=== PATIENT | female | born 1940 | race African-American/Black ===

== ENCOUNTER 2016-12-14 15:26 | Inpatient (IN) | payer MEDICARE, MEDICAID ==
[~2016-12-14] VITALS: Ht 152.4 cm; Wt 43.1 kg
[~2016-12-14 15:26] MED LIST: COMPLERA PO; METO50TA5 PO; TRAZ-132 PO
[2016-12-14] MEDS ORDERED: IPRATROPIUM BROMIDE (0.02%) 0.5MG/2.5ML NEB HHN STA (16:02)
[2016-12-14] MEDS ORDERED: ALBUTEROL (0.083%) 2.5MG/3ML NEB HHN STA (16:02)
[2016-12-14] MEDS ORDERED: ASPIRIN 81MG TABLET PO STA (16:02)
[2016-12-14] MEDS ORDERED: METHYLPREDNISOLONE SOD SUCC 125 MG/2 ML VIAL IV STA (16:02)
[2016-12-14] MEDS ORDERED: NITROGLYCERIN 0.4MG TABLET SL SL PRN ×3 (16:15→18:30)
[2016-12-14] MEDS ORDERED: LEVOFLOXACIN 750MG PREMIX 150 ML IV ONE (16:15)
[2016-12-14] MEDS ORDERED: SODIUM CHLORIDE 0.9% 1000ML BAG (SEPSIS BOLUS) IV ONE (16:15)
[2016-12-14 16:26] LABS: BASOPHILS % 0.3 % (0.0-2.0); HEMATOCRIT. 36.5 % (36.0-48.0); HEMOGLOBIN. 11.9 g/dL (12.0-16.0); LYMPHOCYTES % 24.6 % (20.0-50.0); MEAN CORPUSCULAR HEMOGLOBIN 29.2 pg (28.0-32.0); MEAN CORPUSCULAR HGB CONC 32.7 g/dL (31.0-37.0); MEAN CORPUSCULAR VOLUME 89.4 fL (81.0-99.0); MEAN PLATELET VOLUME 8.5 fl (7.4-10.4); MONOCYTES % 8.7 % (2.0-8.0); NEUTROPHILS % 65.4 % (40.0-76.0); PLATELET 299 x1000/uL (130-400); RED BLOOD CELL COUNT 4.08 mill/uL (4.2-5.4); RED CELL DISTRIBUTION WIDTH 15.7 % (11.6-14.6); WHITE BLOOD COUNT 10.1 x1000/uL (4.5-11.0)
[2016-12-14 16:33] LABS: PARTIAL THROMBOPLASTIN TIME 23.9 sec (24.0-34.0)
[2016-12-14 16:41] LABS: ANION GAP 7; CALCIUM 8.4 mg/dL (8.5-10.1); CARBON DIOXIDE 33 mEq/L (21-32); CHLORIDE 105 mEq/L (98-107); INDEX HEMOLYSI 1 (1-3); INDEX ICTERIC 1 (1-4); INDEX LIPEMIC 1 (1-3); NT PRO B-TYPE NATRIURETIC PEP 732 pg/mL (5-125); TROPONIN I < 0.02 ng/mL (0.00-0.04); UREA NITROGEN BLOOD 14 mg/dL (7-21); eGFR > 60 mL/min (>60)
[2016-12-14 17:42] LABS: CLARITY URINE CLEAR (CLEAR); COLOR URINE YELLOW (YELLOW); GLUCOSE URINE NEGATIVE (NEGATIVE); KETONES URINE NEGATIVE (NEGATIVE); LEUKOCYTE ESTERASE URINE TRACE (NEGATIVE); NITRITE URINE NEGATIVE (NEGATIVE); OCCULT BLOOD URINE NEGATIVE (NEGATIVE); PROTEIN URINE NEGATIVE (NEGATIVE); SPECIFIC GRAVITY URINE 1.016 (1.005-1.030); UROBILINOGEN URINE 0.2 E.U./dL (0.2-1.0)
[2016-12-14 17:59] LABS: BACTERIA URINE TRACE; RBC URINE NONE SEEN /hpf (0-2); SQUAMOUS EPITHELIAL CELL URINE RARE /lpf (RARE/1+); WBC URINE 0-2 /hpf (0-2)
[2016-12-14 18:10] LABS: *AMPHETAMINES SCREEN URINE NEGATIVE (NEGATIVE); *BARBITURATES SCREEN URINE NEGATIVE (NEGATIVE); *BENZODIAZEPINES SCREEN URINE NEGATIVE (NEGATIVE); *COCAINE SCREEN URINE NEGATIVE (NEGATIVE); CANNABINOID URINE SCREEN NEGATIVE (NEGATIVE); ECSTASY MDMA SCREEN URINE NEGATIVE (NEGATIVE); METHADONE URINE SCREEN NEGATIVE (NEGATIVE); OPIATES URINE SCREEN NEGATIVE (NEGATIVE); PHENCYCLIDINE URINE SCREEN NEGATIVE (NEGATIVE)
[2016-12-14] MEDS ORDERED: ONDANSETRON HCL 4MG/2ML VIAL IV PRN (18:30)
[2016-12-14] MEDS ORDERED: TRAMADOL 50MG TABLET PO PRN (18:30)
[2016-12-14] MEDS ORDERED: GUAIFENESIN 200MG/10ML SUGAR FREE UDC PO PRN (18:30)
[2016-12-14] MEDS ORDERED: ACETAMINOPHEN 325MG TABLET PO PRN (18:30)
[2016-12-14] MEDS ORDERED: LORAZEPAM 2MG/ML CPJ IV PRN (18:30)
[2016-12-14] MEDS ORDERED: MORPHINE SULFATE 2 MG/ML CPJ (NOT FOR IM USE) IV PRN (18:30)
[2016-12-14] MEDS ORDERED: DIPHENHYDRAMINE 50MG/ML VIAL IV PRN (18:30)
[2016-12-14] MEDS ORDERED: MAGNESIUM/ALUMINUM HYDROXIDE/SIMETHICONE 30ML UDC PO PRN (18:30)
[2016-12-14] MEDS ORDERED: ZOLPIDEM TARTRATE 5MG TABLET PO PRN (18:30)
[2016-12-14] MEDS ORDERED: CLONIDINE 0.1MG TABLET PO PRN (18:30)
[2016-12-14] MEDS ORDERED: NA PHOS,M-B/NA PHOS,DI-BA ENEMA 118ML PR PRN (18:30)
[2016-12-14] MEDS ORDERED: IPRATROPIUM/ALBUTEROL 0.5-3(2.5)MG/3ML NEB INH PRN (18:30)
[2016-12-14] MEDS ORDERED: DOCUSATE SODIUM 100MG CAPSULE PO PRN (18:30)
[2016-12-14 22:30] VITALS: BP 143/71
[2016-12-14 22:33] LABS: CREATINE KINASE 78 IU/L (26-192); CREATINE KINASE MB FRACTION 1.1 ng/mL (0.5-3.6); INDEX HEMOLYSI 1 (1-3); TROPONIN I < 0.02 ng/mL (0.00-0.04)
[2016-12-14] MEDS: GUAIFENESIN/DM 600MG/30MG ER TAB 12HR PO SCH (23:16)
[2016-12-14] MEDS: METHYLPREDNISOLONE SOD SUCC 125 MG/2 ML VIAL IV SCH (23:16)
[2016-12-14] MEDS: LISINOPRIL 20MG TABLET PO SCH (23:17)
[2016-12-14] MEDS ORDERED: FAMO20TA8 PO (23:43)
[2016-12-14] MEDS ORDERED: LISI-604 PO (23:43)
[2016-12-14] MEDS ORDERED: PENT400T2 PO (23:43)
[2016-12-14] MEDS ORDERED: CLOP75TA33 PO (23:43)
[2016-12-15 04:00] VITALS: BP 129/63
[2016-12-15] MEDS: METHYLPREDNISOLONE SOD SUCC 125 MG/2 ML VIAL IV SCH (05:42)
[2016-12-15 07:26] LABS: INDEX HEMOLYSI 1 (1-3)
[2016-12-15 07:40] LABS: CREATINE KINASE 61 IU/L (26-192); CREATINE KINASE MB FRACTION 0.7 ng/mL (0.5-3.6); TROPONIN I < 0.02 ng/mL (0.00-0.04)
[2016-12-15] MEDS: IPRATROPIUM/ALBUTEROL 0.5-3(2.5)MG/3ML NEB HHN SCH ×4 (07:50→20:50)
[2016-12-15 08:00] VITALS: BP 166/120
[2016-12-15] MEDS: ENOXAPARIN 40MG/0.4ML SYR SUBCUT SCH ×2 (08:49→09:00)
[2016-12-15] MEDS: GUAIFENESIN/DM 600MG/30MG ER TAB 12HR PO SCH ×3 (08:49→21:00)
[2016-12-15] MEDS: ASPIRIN 325MG EC TABLET PO SCH ×2 (08:49→09:00)
[2016-12-15] MEDS: PANTOPRAZOLE SODIUM 40 MG/VIAL IV SCH ×2 (08:49→09:00)
[2016-12-15] MEDS: LISINOPRIL 20MG TABLET PO SCH ×2 (08:50→21:00)
[2016-12-15] MEDS: SULFAMETHOXAZOLE/TRIMETHOPRIM 800/160MG TABLET PO SCH (09:00)
[2016-12-15] MEDS: ZINC SULFATE 220 MG ( 50 ) CAPSULE PO SCH (09:00)
[2016-12-15] MEDS ORDERED: [UNRECOGNIZED DRUG - REMARK] PO (10:37)
[2016-12-15] MEDS ORDERED: [UNRECOGNIZED DRUG - OTHER] PO SCH (10:45)
[2016-12-15] MEDS ORDERED: PREN-88 PO (11:13)
[2016-12-15] MEDS: FAMOTIDINE 20MG TABLET PO SCH (11:41)
[2016-12-15] MEDS: CLOPIDOGREL 75MG TABLET PO SCH (11:41)
[2016-12-15] MEDS: METOPROLOL TARTRATE 50MG TABLET PO SCH ×2 (11:42→21:00)
[2016-12-15 12:00] VITALS: BP 107/86
[2016-12-15] MEDS: PRENATAL VIT/FE FUMARATE/FA TABLET PO SCH ×3 (13:26→14:59)
[2016-12-15] MEDS: PENTOXIFYLLINE 400MG TABLET PO SCH ×3 (13:26→21:03)
[2016-12-15] MEDS: COMPLERA PO SCH (13:26)
[2016-12-15] MEDS: AZITHROMYCIN 600 MG TABLET PO SCH (14:59)
[2016-12-15 16:00] VITALS: BP 138/71
[2016-12-15] MEDS ORDERED: LEVOFLOXACIN 250MG PREMIX 50 ML IV SCH (17:00)
[2016-12-15] MEDS: TRAZODONE HCL 100MG TABLET PO PRN (20:20)
[2016-12-16] MEDS: IPRATROPIUM/ALBUTEROL 0.5-3(2.5)MG/3ML NEB HHN SCH ×6 (00:35→20:26)
[2016-12-16] MEDS: PENTOXIFYLLINE 400MG TABLET PO SCH ×3 (07:20→20:28)
[2016-12-16 08:00] VITALS: BP 132/77
[2016-12-16] MEDS: LISINOPRIL 20MG TABLET PO SCH ×2 (08:10→20:28)
[2016-12-16] MEDS: ZINC SULFATE 220 MG ( 50 ) CAPSULE PO SCH (08:10)
[2016-12-16] MEDS: SULFAMETHOXAZOLE/TRIMETHOPRIM 800/160MG TABLET PO SCH (08:10)
[2016-12-16] MEDS: GUAIFENESIN/DM 600MG/30MG ER TAB 12HR PO SCH ×2 (08:10→20:28)
[2016-12-16] MEDS: PANTOPRAZOLE SODIUM 40 MG/VIAL IV SCH (08:11)
[2016-12-16] MEDS: METOPROLOL TARTRATE 50MG TABLET PO SCH ×2 (08:11→20:28)
[2016-12-16] MEDS: CLOPIDOGREL 75MG TABLET PO SCH (08:11)
[2016-12-16] MEDS: ASPIRIN 325MG EC TABLET PO SCH (08:11)
[2016-12-16] MEDS: FAMOTIDINE 20MG TABLET PO SCH (08:11)
[2016-12-16] MEDS: COMPLERA PO SCH (08:13)
[2016-12-16] MEDS: ENOXAPARIN 40MG/0.4ML SYR SUBCUT SCH (08:21)
[2016-12-16 12:00] VITALS: BP 120/71
[2016-12-16 16:00] VITALS: BP 115/60
[2016-12-16 20:00] VITALS: BP 108/62
[2016-12-17 04:00] VITALS: BP 139/71
[2016-12-17] MEDS: PENTOXIFYLLINE 400MG TABLET PO SCH ×3 (05:35→22:00)
[2016-12-17 08:00] VITALS: BP 138/59
[2016-12-17] MEDS: ZINC SULFATE 220 MG ( 50 ) CAPSULE PO SCH (09:00)
[2016-12-17] MEDS: LISINOPRIL 20MG TABLET PO SCH ×2 (09:00→20:41)
[2016-12-17] MEDS: FAMOTIDINE 20MG TABLET PO SCH (09:00)
[2016-12-17] MEDS: COMPLERA PO SCH (09:07)
[2016-12-17] MEDS: ENOXAPARIN 40MG/0.4ML SYR SUBCUT SCH (09:08)
[2016-12-17] MEDS: CLOPIDOGREL 75MG TABLET PO SCH (09:08)
[2016-12-17] MEDS: METOPROLOL TARTRATE 50MG TABLET PO SCH ×2 (09:08→20:41)
[2016-12-17] MEDS: SULFAMETHOXAZOLE/TRIMETHOPRIM 800/160MG TABLET PO SCH (09:08)
[2016-12-17] MEDS: ASPIRIN 325MG EC TABLET PO SCH (09:08)
[2016-12-17] MEDS: GUAIFENESIN/DM 600MG/30MG ER TAB 12HR PO SCH ×2 (09:08→20:31)
[2016-12-17] MEDS: AZITHROMYCIN 600 MG TABLET PO SCH (09:08)
[2016-12-17] MEDS: PRENATAL VIT/FE FUMARATE/FA TABLET PO SCH (09:08)
[2016-12-17] MEDS: IPRATROPIUM/ALBUTEROL 0.5-3(2.5)MG/3ML NEB HHN SCH ×3 (09:15→20:46)
[2016-12-17 12:00] VITALS: BP 110/64
[2016-12-17 16:00] VITALS: BP 108/59
[2016-12-17 20:00] VITALS: BP 111/59
[2016-12-17] MEDS: TRAZODONE HCL 100MG TABLET PO PRN (20:38)
[2016-12-18] VITALS: BP 110/56
[2016-12-18 04:00] VITALS: BP 111/68
[2016-12-18] MEDS: IPRATROPIUM/ALBUTEROL 0.5-3(2.5)MG/3ML NEB HHN SCH ×2 (04:00)
[2016-12-18] MEDS: PENTOXIFYLLINE 400MG TABLET PO SCH ×2 (06:00→14:00)
[2016-12-18 08:00] VITALS: BP 132/59
[2016-12-18] MEDS: ZINC SULFATE 220 MG ( 50 ) CAPSULE PO SCH (09:00)
[2016-12-18] MEDS: LISINOPRIL 20MG TABLET PO SCH (09:00)
[2016-12-18] MEDS: FAMOTIDINE 20MG TABLET PO SCH (09:00)
[2016-12-18] MEDS: COMPLERA PO SCH (09:03)
[2016-12-18] MEDS: ENOXAPARIN 40MG/0.4ML SYR SUBCUT SCH (09:03)
[2016-12-18] MEDS: PRENATAL VIT/FE FUMARATE/FA TABLET PO SCH (09:03)
[2016-12-18] MEDS: ASPIRIN 325MG EC TABLET PO SCH (09:04)
[2016-12-18] MEDS: GUAIFENESIN/DM 600MG/30MG ER TAB 12HR PO SCH (09:04)
[2016-12-18] MEDS: CLOPIDOGREL 75MG TABLET PO SCH (09:04)
[2016-12-18] MEDS: METOPROLOL TARTRATE 50MG TABLET PO SCH (09:04)
[2016-12-18] MEDS: SULFAMETHOXAZOLE/TRIMETHOPRIM 800/160MG TABLET PO SCH (09:04)
[2016-12-18 10:53] LABS: HEMATOCRIT 36.1 % (36.0-48.0); HEMOGLOBIN 11.5 g/dL (12.0-16.0); MEAN CORPUSCULAR HEMOGLOBIN 28.5 pg (28.0-32.0); MEAN CORPUSCULAR HGB CONC 31.8 g/dL (31.0-37.0); MEAN CORPUSCULAR VOLUME 89.4 fL (81.0-99.0); PLATELET 287 x1000/uL (130-400); RED BLOOD CELL COUNT 4.04 mill/uL (4.2-5.4); RED CELL DISTRIBUTION WIDTH 16.5 % (11.6-14.6); WHITE BLOOD COUNT 8.3 x1000/uL (4.5-11.0)
[2016-12-18 11:49] VITALS: BP 129/61
[2016-12-18 12:00] VITALS: BP 129/61
== END 2016-12-18 14:40 | DRG 189 ==
LOC: ER 15:42 → 5WST 18:04
PROVIDERS: ADMIT Internal Medicine; ATTEND Internal Medicine
DX: J96.00 Acute respiratory failure, unspecified whether with hypoxia or hypercapnia (principal); B20 Human immunodeficiency virus [HIV] disease; E43 Unspecified severe protein-calorie malnutrition; J44.1 Chronic obstructive pulmonary disease with (acute) exacerbation; Z68.1 Body mass index [BMI] 19.9 or less, adult; R07.89 Other chest pain; I50.9 Heart failure, unspecified; J40 Bronchitis, not specified as acute or chronic; I10 Essential (primary) hypertension; F14.10 Cocaine abuse, uncomplicated; F10.10 Alcohol abuse, uncomplicated; F12.10 Cannabis abuse, uncomplicated; E78.00 Pure hypercholesterolemia, unspecified; J45.909 Unspecified asthma, uncomplicated; E78.5 Hyperlipidemia, unspecified; Z87.01 Personal history of pneumonia (recurrent); Z86.718 Personal history of other venous thrombosis and embolism; Z91.19 Patient's noncompliance with other medical treatment and regimen; Z89.021 Acquired absence of right finger(s); Z87.891 Personal history of nicotine dependence; Z79.899 Other long term (current) drug therapy
CPT/HCPCS: 36415; 71010; 80048; 80305; 81001; 82550; 82553; 83605; 83880; 84484; 85025; 85027; 85610; 85730; 87040; 87070; 87086; 93005; 94640; 94664; 96365; 96375; 99285; C9113; J1200; J1650; J1956; J2930; J7030; J7050; J7611; J7620

== ENCOUNTER 2017-06-08 10:10 | Inpatient (IN) | payer MEDICAID, MEDICARE ==
[~2017-06-08] VITALS: Ht 152.4 cm; Wt 55.8 kg
[~2017-06-08 10:10] MED LIST changes: +CLOP75TA33 PO; +FAMO20TA8 PO; +LISI-604 PO; +PENT400T2 PO
[2017-06-08] MEDS ORDERED: ASPIRIN 81MG TABLET PO STA (10:25)
[2017-06-08] MEDS ORDERED: METHYLPREDNISOLONE SOD SUCC 125 MG/2 ML VIAL IV STA (10:25)
[2017-06-08] MEDS ORDERED: IPRATROPIUM BROMIDE (0.02%) 0.5MG/2.5ML NEB HHN STA (10:25)
[2017-06-08] MEDS ORDERED: ALBUTEROL (0.083%) 2.5MG/3ML NEB HHN STA (10:25)
[2017-06-08] MEDS ORDERED: LEVOFLOXACIN 750MG PREMIX 150 ML IV ONE (10:30)
[2017-06-08] MEDS ORDERED: SODIUM CHLORIDE 0.9% 1000ML BAG (SEPSIS BOLUS) IV ONE (10:30)
[2017-06-08 11:01] LABS: HEMATOCRIT. 39.6 % (36.0-48.0); HEMOGLOBIN. 12.4 g/dL (12.0-16.0); MEAN CORPUSCULAR HEMOGLOBIN 26.1 pg (28.0-32.0); MEAN PLATELET VOLUME 8.2 fl (7.4-10.4); PLATELET 286 x1000/uL (130-400); RED BLOOD CELL COUNT 4.77 mill/uL (4.2-5.4)
[2017-06-08 11:10] LABS: PARTIAL THROMBOPLASTIN TIME 23.5 sec (23.4-31.0); PROTHROMBIN TIME 10.5 sec (9.4-11.6)
[2017-06-08 11:14] LABS: CARBON DIOXIDE 31 mEq/L (21-32); CHLORIDE 106 mEq/L (98-107)
[2017-06-08 11:19] LABS: TROPONIN I < 0.02 ng/mL (0.00-0.04)
[2017-06-08 13:49] LABS: NUCLEATED RED BLOOD CELLS 1 /100 WBC
[2017-06-08 13:50] LABS: PLATELET ESTIMATE NORMAL
[2017-06-08 17:30] VITALS: BP 151/90
[2017-06-08] MEDS ORDERED: DIPHENHYDRAMINE 50MG/ML VIAL IV PRN (17:45)
[2017-06-08] MEDS ORDERED: HYDROCODONE/ACETAMINOPHEN 5/325MG TABLET PO PRN (17:45)
[2017-06-08] MEDS ORDERED: NA PHOS,M-B/NA PHOS,DI-BA ENEMA 118ML PR PRN (17:45)
[2017-06-08] MEDS ORDERED: DOCUSATE SODIUM 100MG CAPSULE PO PRN (17:45)
[2017-06-08] MEDS ORDERED: IPRATROPIUM/ALBUTEROL 0.5-3(2.5)MG/3ML NEB INH PRN (17:45)
[2017-06-08] MEDS ORDERED: ONDANSETRON HCL 4MG/2ML VIAL IV PRN (17:45)
[2017-06-08] MEDS ORDERED: ACETAMINOPHEN 650MG/20.3ML UDC GT PRN (17:45)
[2017-06-08] MEDS ORDERED: ACETAMINOPHEN 650MG SUPP PR PRN (17:45)
[2017-06-08] MEDS ORDERED: ACETAMINOPHEN 325MG TABLET PO PRN (17:45)
[2017-06-08] MEDS ORDERED: GUAIFENESIN 200MG/10ML SUGAR FREE UDC PO PRN (17:45)
[2017-06-08] MEDS ORDERED: CLONIDINE 0.1MG TABLET PO PRN (17:45)
[2017-06-08] MEDS ORDERED: MAGNESIUM/ALUMINUM HYDROXIDE/SIMETHICONE 30ML UDC PO PRN (17:45)
[2017-06-08] MEDS ORDERED: HYDROMORPHONE HCL/PF 2MG/ML CPJ IV PRN (17:45)
[2017-06-08 17:50] VITALS: BP 151/95
[2017-06-08] MEDS: ENOXAPARIN 30MG/0.3ML SYR SUBCUT SCH (18:00)
[2017-06-08] MEDS ORDERED: PNV1TABL76 MT (19:06)
[2017-06-08 20:00] VITALS: BP 153/48
[2017-06-08] MEDS: IPRATROPIUM/ALBUTEROL 0.5-3(2.5)MG/3ML NEB INH SCH (20:30)
[2017-06-08] MEDS: SODIUM CHLORIDE 0.9% INJ 3ML FLUSH IVF SCH (22:00)
[2017-06-08 23:31] LABS: CREATINE KINASE 108 IU/L (26-192); TROPONIN I < 0.02 ng/mL (0.00-0.04)
[2017-06-09] MEDS: IPRATROPIUM/ALBUTEROL 0.5-3(2.5)MG/3ML NEB INH SCH ×4 (01:46→20:40)
[2017-06-09 04:30] VITALS: BP 144/74
[2017-06-09] MEDS: SODIUM CHLORIDE 0.9% INJ 3ML FLUSH IVF SCH ×3 (06:00→20:32)
[2017-06-09 08:00] VITALS: BP 160/65
[2017-06-09 09:24] LABS: HEMATOCRIT. 35.3 % (36.0-48.0); MEAN CORPUSCULAR VOLUME 83.1 fL (81.0-99.0); MEAN PLATELET VOLUME 8.6 fl (7.4-10.4); PLATELET 265 x1000/uL (130-400); RED BLOOD CELL COUNT 4.25 mill/uL (4.2-5.4); RED CELL DISTRIBUTION WIDTH 18.3 % (11.6-14.6)
[2017-06-09 09:50] LABS: CARBON DIOXIDE 26 mEq/L (21-32); CHLORIDE 109 mEq/L (98-107); CREATINE KINASE 88 IU/L (26-192); HDL CHOLESTEROL 76 mg/dL (40-59); LDL CHOLESTEROL 84 mg/dL (5-100)
[2017-06-09 09:52] LABS: TROPONIN I < 0.02 ng/mL (0.00-0.04)
[2017-06-09] MEDS ORDERED: LEVOFLOXACIN 250MG PREMIX 50 ML IV SCH ×2 (11:00)
[2017-06-09 12:00] VITALS: BP 139/61
[2017-06-09] MEDS: PENTOXIFYLLINE 400MG TABLET PO SCH ×2 (14:00→20:31)
[2017-06-09 14:57] LABS: PLATELET ESTIMATE NORMAL
[2017-06-09 16:00] VITALS: BP 138/57
[2017-06-09 17:11] LABS: CLARITY URINE CLEAR (CLEAR); COLOR URINE YELLOW (YELLOW); GLUCOSE URINE NEGATIVE (NEGATIVE); KETONES URINE NEGATIVE (NEGATIVE); LEUKOCYTE ESTERASE URINE NEGATIVE (NEGATIVE); NITRITE URINE NEGATIVE (NEGATIVE); OCCULT BLOOD URINE NEGATIVE (NEGATIVE); PROTEIN URINE NEGATIVE (NEGATIVE); SPECIFIC GRAVITY URINE 1.022 (1.005-1.030); UROBILINOGEN URINE 0.2 E.U./dL (0.2-1.0)
[2017-06-09 17:20] LABS: *AMPHETAMINES SCREEN URINE NEGATIVE (NEGATIVE); *BARBITURATES SCREEN URINE NEGATIVE (NEGATIVE); *BENZODIAZEPINES SCREEN URINE NEGATIVE (NEGATIVE); *COCAINE SCREEN URINE PRESUMTIVE POSITIVE (NEGATIVE); CANNABINOID URINE SCREEN NEGATIVE (NEGATIVE); METHADONE URINE SCREEN NEGATIVE (NEGATIVE); OPIATES URINE SCREEN NEGATIVE (NEGATIVE); PHENCYCLIDINE URINE SCREEN NEGATIVE (NEGATIVE)
[2017-06-09] MEDS: ENOXAPARIN 30MG/0.3ML SYR SUBCUT SCH (18:00)
[2017-06-09] MEDS: PREDNISONE 20MG TABLET PO SCH (18:01)
[2017-06-09] MEDS: METOPROLOL TARTRATE 50MG TABLET PO SCH (20:27)
[2017-06-09] MEDS: GUAIFENESIN 600MG ER TABLET PO SCH (20:28)
[2017-06-09] MEDS: ZOLPIDEM TARTRATE 5MG TABLET PO PRN (20:29)
[2017-06-09] MEDS: COMPLERA PO SCH (20:31)
[2017-06-09 20:33] VITALS: BP 156/54
[2017-06-09] MEDS: BUDESONIDE 0.5MG/2ML NEB HHN SCH (20:40)
[2017-06-10] VITALS: BP 140/52
[2017-06-10] MEDS: IPRATROPIUM/ALBUTEROL 0.5-3(2.5)MG/3ML NEB INH SCH ×4 (02:17→21:01)
[2017-06-10 04:00] VITALS: BP 127/54
[2017-06-10] MEDS: PENTOXIFYLLINE 400MG TABLET PO SCH ×3 (05:37→21:15)
[2017-06-10] MEDS: SODIUM CHLORIDE 0.9% INJ 3ML FLUSH IVF SCH ×3 (05:37→21:14)
[2017-06-10] MEDS: BUDESONIDE 0.5MG/2ML NEB HHN SCH ×2 (07:18→21:00)
[2017-06-10 08:00] VITALS: BP 135/66
[2017-06-10] MEDS: FAMOTIDINE 20MG TABLET PO SCH ×2 (09:00→09:30)
[2017-06-10] MEDS: PREDNISONE 20MG TABLET PO SCH (09:28)
[2017-06-10] MEDS: COMPLERA PO SCH (09:29)
[2017-06-10] MEDS: GUAIFENESIN 600MG ER TABLET PO SCH ×2 (09:29→21:15)
[2017-06-10] MEDS: CLOPIDOGREL 75MG TABLET PO SCH (09:30)
[2017-06-10] MEDS: METOPROLOL TARTRATE 50MG TABLET PO SCH ×2 (09:35→21:15)
[2017-06-10] MEDS: LEVOFLOXACIN 250MG TABLET PO SCH (11:57)
[2017-06-10 12:00] VITALS: BP 113/71
[2017-06-10] MEDS ORDERED: LIDOCAINE HCL/PF 1% 2ML VIAL ONE (14:19)
[2017-06-10 14:50] LABS: BASOPHILS % 0.4 % (0.0-2.0); HEMATOCRIT. 38.8 % (36.0-48.0); HEMOGLOBIN. 12.1 g/dL (12.0-16.0); LYMPHOCYTES % 9.7 % (20.0-50.0); MEAN CORPUSCULAR HEMOGLOBIN 25.8 pg (28.0-32.0); MEAN CORPUSCULAR VOLUME 82.8 fL (81.0-99.0); MEAN PLATELET VOLUME 8.4 fl (7.4-10.4); MONOCYTES % 2.6 % (2.0-8.0); NEUTROPHILS % 87.3 % (40.0-76.0); PLATELET 317 x1000/uL (130-400); RED BLOOD CELL COUNT 4.68 mill/uL (4.2-5.4); RED CELL DISTRIBUTION WIDTH 18.5 % (11.6-14.6)
[2017-06-10 15:18] LABS: CARBON DIOXIDE 29 mEq/L (21-32); CHLORIDE 105 mEq/L (98-107)
[2017-06-10 15:41] LABS: BG BASE EXCESS 7.1 mmol/L (-2.0-2.0); BG CARBOXYHEMOGLOBIN 0.3 % (0.5-1.5); BG FRACTION INSPIRED OXYGEN 21; BG HCO3 ACT 33.2 mmol/L (22.0-26.0); BG METHEMOGLOBIN 0.2 % (0.0-1.5); BG OXYHEMOGLOBIN 90.5 % (94.0-97.0); BG PCO2 53.9 mmHg (35.0-45.0); BG PH 7.407 (7.350-7.450); BG PO2 57.9 mmHg (75.0-100.0); BG SAMPLE SITE RIGHT BRACHIAL; BG TOTAL HEMOGLOBIN 12.4 g/dL (12.0-18.0); BG VENT MODE ROOM AIR
[2017-06-10 16:00] VITALS: BP 132/54
[2017-06-10] MEDS: ENOXAPARIN 30MG/0.3ML SYR SUBCUT SCH (18:00)
[2017-06-10 20:00] VITALS: BP 134/53
[2017-06-10] MEDS: ZOLPIDEM TARTRATE 5MG TABLET PO PRN (21:15)
[2017-06-11] VITALS: BP 121/48
[2017-06-11 04:00] VITALS: BP 132/65
[2017-06-11] MEDS: PENTOXIFYLLINE 400MG TABLET PO SCH ×2 (05:38→14:00)
[2017-06-11] MEDS: SODIUM CHLORIDE 0.9% INJ 3ML FLUSH IVF SCH ×2 (05:38→14:34)
[2017-06-11 08:00] VITALS: BP 128/60
[2017-06-11] MEDS: BUDESONIDE 0.5MG/2ML NEB HHN SCH (08:17)
[2017-06-11] MEDS: IPRATROPIUM/ALBUTEROL 0.5-3(2.5)MG/3ML NEB INH SCH ×3 (08:17→15:56)
[2017-06-11] MEDS: FAMOTIDINE 20MG TABLET PO SCH (09:34)
[2017-06-11] MEDS: PREDNISONE 20MG TABLET PO SCH (09:34)
[2017-06-11] MEDS: CLOPIDOGREL 75MG TABLET PO SCH (09:34)
[2017-06-11] MEDS: METOPROLOL TARTRATE 50MG TABLET PO SCH (09:35)
[2017-06-11] MEDS: COMPLERA PO SCH (09:35)
[2017-06-11] MEDS: GUAIFENESIN 600MG ER TABLET PO SCH (09:42)
[2017-06-11 12:00] VITALS: BP 122/68
[2017-06-11] MEDS: LEVOFLOXACIN 250MG TABLET PO SCH (14:33)
[2017-06-11 15:13] VITALS: BP 114/85
[2017-06-11 16:00] VITALS: BP 114/76
== END 2017-06-11 19:00 | DRG 871 ==
LOC: ER 11:14 → EDBEDREQ 12:26 → EDBEDREQTM 12:26 → ENRESERV 15:58 → 7WST 16:37
PROVIDERS: ADMIT Family Medicine; ATTEND Family Medicine
DX: A41.9 Sepsis, unspecified organism (principal); J96.00 Acute respiratory failure, unspecified whether with hypoxia or hypercapnia; J44.0 Chronic obstructive pulmonary disease with (acute) lower respiratory infection; J44.1 Chronic obstructive pulmonary disease with (acute) exacerbation; I10 Essential (primary) hypertension; J20.9 Acute bronchitis, unspecified; F14.90 Cocaine use, unspecified, uncomplicated; Z79.899 Other long term (current) drug therapy; Z59.0 Homelessness; Z89.021 Acquired absence of right finger(s); Z87.891 Personal history of nicotine dependence; Z82.49 Family history of ischemic heart disease and other diseases of the circulatory system
CPT/HCPCS: 36415; 36600; 71010; 80048; 80053; 80061; 80305; 81003; 82375; 82550; 82805; 83605; 83880; 84484; 85025; 85610; 85730; 87040; 93005; 94640; 94664; 96361; 96365; 96375; 99285; J1650; J1956; J2930; J3490; J7030; J7050; J7512; J7611; J7620; J7626

== ENCOUNTER 2017-06-29 19:29 | Inpatient (IN) | payer MEDICARE ==
[~2017-06-29] VITALS: Ht 152.4 cm; Wt 54.0 kg
[~2017-06-29 19:29] MED LIST changes: -LISI-604 PO; +PNV1TABL76 MT; -TRAZ-132 PO
[2017-06-29] MEDS ORDERED: ALBUTEROL (0.083%) 2.5MG/3ML NEB HHN STA (19:53)
[2017-06-29] MEDS ORDERED: METHYLPREDNISOLONE SOD SUCC 125 MG/2 ML VIAL IV STA (19:53)
[2017-06-29] MEDS ORDERED: IPRATROPIUM BROMIDE (0.02%) 0.5MG/2.5ML NEB HHN STA (19:53)
[2017-06-29] MEDS ORDERED: MAGNESIUM 2 G PREMIX 50 ML IV ONE (20:00)
[2017-06-29 20:39] LABS: HEMATOCRIT. 34.7 % (36.0-48.0); HEMOGLOBIN. 11.3 g/dL (12.0-16.0); MEAN CORPUSCULAR HEMOGLOBIN 26.1 pg (28.0-32.0); MEAN CORPUSCULAR VOLUME 80.6 fL (81.0-99.0); MEAN PLATELET VOLUME 8.5 fl (7.4-10.4); PLATELET 275 x1000/uL (130-400); RED BLOOD CELL COUNT 4.31 mill/uL (4.2-5.4); RED CELL DISTRIBUTION WIDTH 20.5 % (11.6-14.6)
[2017-06-29 20:45] LABS: PROTHROMBIN TIME 10.4 sec (9.4-11.6)
[2017-06-29 20:50] LABS: CARBON DIOXIDE 26 mEq/L (21-32); CHLORIDE 105 mEq/L (98-107)
[2017-06-29 20:55] LABS: TROPONIN I < 0.02 ng/mL (0.00-0.04)
[2017-06-29 21:00] LABS: PLATELET ESTIMATE NORMAL
[2017-06-29] MEDS ORDERED: FUROSEMIDE 40MG/4ML VIAL IVP ONE (21:30)
[2017-06-29] MEDS ORDERED: LEVOFLOXACIN 500MG PREMIX 100 ML IV ONE (22:00)
[2017-06-29] MEDS ORDERED: GUAIFENESIN 200MG/10ML SUGAR FREE UDC PO PRN (22:30)
[2017-06-29] MEDS ORDERED: DIPHENHYDRAMINE 50MG/ML VIAL IV PRN (22:30)
[2017-06-29] MEDS ORDERED: ACETAMINOPHEN 325MG TABLET PO PRN (22:30)
[2017-06-29] MEDS ORDERED: TRAMADOL 50MG TABLET PO PRN (22:30)
[2017-06-29] MEDS ORDERED: ONDANSETRON HCL 4MG/2ML VIAL IV PRN (22:30)
[2017-06-29] MEDS ORDERED: MAGNESIUM/ALUMINUM HYDROXIDE/SIMETHICONE 30ML UDC PO PRN (22:30)
[2017-06-29] MEDS ORDERED: LORAZEPAM 2MG/ML CPJ IV PRN (22:30)
[2017-06-29] MEDS ORDERED: CLONIDINE 0.1MG TABLET PO PRN (22:30)
[2017-06-29] MEDS ORDERED: NA PHOS,M-B/NA PHOS,DI-BA ENEMA 118ML PR PRN (22:30)
[2017-06-29] MEDS ORDERED: IPRATROPIUM/ALBUTEROL 0.5-3(2.5)MG/3ML NEB INH PRN (22:30)
[2017-06-29] MEDS ORDERED: DOCUSATE SODIUM 100MG CAPSULE PO PRN (22:30)
[2017-06-30] VITALS (7 sets, daily range): BP systolic 98–240; BP diastolic 52–202
[2017-06-30] MEDS ORDERED: LEVOFLOXACIN 500MG PREMIX 100 ML IV SCH (03:00)
[2017-06-30] MEDS ORDERED: CEFTRIAXONE 1 G PREMIX 50 ML IV SCH (03:00)
[2017-06-30] MEDS: METHYLPREDNISOLONE SOD SUCC 125 MG/2 ML VIAL IV SCH ×3 (05:47→20:34)
[2017-06-30] MEDS: DILTIAZEM HCL 60MG TABLET PO SCH ×4 (05:48→23:54)
[2017-06-30 08:00] LABS: CREATINE KINASE 91 IU/L (26-192); CREATINE KINASE MB FRACTION 1.9 ng/mL (0.5-3.6); TROPONIN I < 0.02 ng/mL (0.00-0.04)
[2017-06-30 08:40] LABS: CLARITY URINE CLEAR (CLEAR); COLOR URINE YELLOW (YELLOW); GLUCOSE URINE NEGATIVE (NEGATIVE); KETONES URINE NEGATIVE (NEGATIVE); LEUKOCYTE ESTERASE URINE TRACE (NEGATIVE); NITRITE URINE NEGATIVE (NEGATIVE); OCCULT BLOOD URINE 1+ (NEGATIVE); PROTEIN URINE NEGATIVE (NEGATIVE); UROBILINOGEN URINE 0.2 E.U./dL (0.2-1.0)
[2017-06-30] MEDS: ENOXAPARIN 40MG/0.4ML SYR SUBCUT SCH ×2 (09:00→09:21)
[2017-06-30] MEDS: FAMOTIDINE 20MG/2ML VIAL IV SCH ×2 (09:00→09:22)
[2017-06-30 09:03] LABS: *AMPHETAMINES SCREEN URINE NEGATIVE (NEGATIVE); *BARBITURATES SCREEN URINE NEGATIVE (NEGATIVE); *BENZODIAZEPINES SCREEN URINE NEGATIVE (NEGATIVE); *COCAINE SCREEN URINE PRESUMTIVE POSITIVE (NEGATIVE); CANNABINOID URINE SCREEN NEGATIVE (NEGATIVE); METHADONE URINE SCREEN NEGATIVE (NEGATIVE); OPIATES URINE SCREEN NEGATIVE (NEGATIVE); PHENCYCLIDINE URINE SCREEN NEGATIVE (NEGATIVE)
[2017-06-30] MEDS: CLOPIDOGREL 75MG TABLET PO SCH (09:21)
[2017-06-30] MEDS: GUAIFENESIN/DM 600MG/30MG ER TAB 12HR PO SCH ×2 (09:21→20:34)
[2017-06-30] MEDS: METOPROLOL TARTRATE 50MG TABLET PO SCH ×2 (10:16→20:34)
[2017-06-30] MEDS: SULFAMETHOXAZOLE/TRIMETHOPRIM 800/160MG TABLET PO SCH (10:16)
[2017-06-30] MEDS: IPRATROPIUM/ALBUTEROL 0.5-3(2.5)MG/3ML NEB HHN SCH ×4 (12:02→20:54)
[2017-06-30 16:58] LABS: CREATINE KINASE 90 IU/L (26-192); CREATINE KINASE MB FRACTION 1.1 ng/mL (0.5-3.6); TROPONIN I < 0.02 ng/mL (0.00-0.04)
[2017-07-01 00:25] VITALS: BP 128/47
[2017-07-01] MEDS ORDERED: LEVOFLOXACIN 250MG PREMIX 50 ML IV SCH (01:00)
[2017-07-01] MEDS: ZOLPIDEM TARTRATE 5MG TABLET PO PRN ×2 (01:25→20:42)
[2017-07-01] MEDS: IPRATROPIUM/ALBUTEROL 0.5-3(2.5)MG/3ML NEB HHN SCH ×6 (04:50→21:31)
[2017-07-01] MEDS: CEFTRIAXONE 1 G PREMIX 50 ML IV SCH (05:32)
[2017-07-01] MEDS: METHYLPREDNISOLONE SOD SUCC 125 MG/2 ML VIAL IV SCH (05:32)
[2017-07-01] MEDS: DILTIAZEM HCL 60MG TABLET PO SCH ×3 (05:32→17:38)
[2017-07-01 08:00] VITALS: BP 145/49
[2017-07-01] MEDS: ENOXAPARIN 40MG/0.4ML SYR SUBCUT SCH (08:59)
[2017-07-01] MEDS: CLOPIDOGREL 75MG TABLET PO SCH (08:59)
[2017-07-01] MEDS: SULFAMETHOXAZOLE/TRIMETHOPRIM 800/160MG TABLET PO SCH (08:59)
[2017-07-01] MEDS: GUAIFENESIN/DM 600MG/30MG ER TAB 12HR PO SCH ×2 (08:59→20:42)
[2017-07-01] MEDS: FAMOTIDINE 20MG/2ML VIAL IV SCH (09:00)
[2017-07-01] MEDS: METOPROLOL TARTRATE 50MG TABLET PO SCH ×2 (09:00→20:43)
[2017-07-01 12:00] VITALS: BP 129/56
[2017-07-01 16:00] VITALS: BP 129/106
[2017-07-01 20:41] VITALS: BP 106/58
[2017-07-01] MEDS: METHYLPREDNISOLONE SOD SUCC 40 MG/ML VIAL IV SCH (20:43)
[2017-07-02] MEDS: IPRATROPIUM/ALBUTEROL 0.5-3(2.5)MG/3ML NEB HHN SCH ×4 (01:15→12:00)
[2017-07-02 05:13] VITALS: BP 155/70
[2017-07-02] MEDS: CEFTRIAXONE 1 G PREMIX 50 ML IV SCH (05:57)
[2017-07-02] MEDS: DILTIAZEM HCL 60MG TABLET PO SCH ×3 (05:57→12:26)
[2017-07-02 08:00] VITALS: BP 148/65
[2017-07-02] MEDS: FAMOTIDINE 20MG/2ML VIAL IV SCH (08:38)
[2017-07-02] MEDS: ENOXAPARIN 40MG/0.4ML SYR SUBCUT SCH (08:38)
[2017-07-02] MEDS: SULFAMETHOXAZOLE/TRIMETHOPRIM 800/160MG TABLET PO SCH (08:39)
[2017-07-02] MEDS: CLOPIDOGREL 75MG TABLET PO SCH (08:39)
[2017-07-02] MEDS: GUAIFENESIN/DM 600MG/30MG ER TAB 12HR PO SCH (08:39)
[2017-07-02] MEDS: METHYLPREDNISOLONE SOD SUCC 40 MG/ML VIAL IV SCH (08:39)
[2017-07-02] MEDS: METOPROLOL TARTRATE 50MG TABLET PO SCH (08:40)
[2017-07-02 11:50] VITALS: BP 128/76
[2017-07-02 12:00] VITALS: BP 128/76
[2017-07-03] MEDS ORDERED: PREDNISONE 20MG TABLET PO SCH (09:00)
== END 2017-07-02 14:52 | disposition home or self-care (01) | DRG 189 ==
LOC: ER 21:28 → 6WST 22:23 → EDBEDREQ 22:31 → ENRESERV 23:02
PROVIDERS: ADMIT Internal Medicine; ATTEND Internal Medicine
DX: J96.20 Acute and chronic respiratory failure, unspecified whether with hypoxia or hypercapnia (principal); B20 Human immunodeficiency virus [HIV] disease; E87.2 Acidosis; J44.1 Chronic obstructive pulmonary disease with (acute) exacerbation; E44.1 Mild protein-calorie malnutrition; I50.9 Heart failure, unspecified; I11.0 Hypertensive heart disease with heart failure; D63.8 Anemia in other chronic diseases classified elsewhere; F14.10 Cocaine abuse, uncomplicated; F17.210 Nicotine dependence, cigarettes, uncomplicated; F41.9 Anxiety disorder, unspecified; I25.10 Atherosclerotic heart disease of native coronary artery without angina pectoris; Z59.0 Homelessness; Z79.02 Long term (current) use of antithrombotics/antiplatelets; Z86.73 Personal history of transient ischemic attack (TIA), and cerebral infarction without residual deficits; Z91.14 Patient's other noncompliance with medication regimen; Z89.029 Acquired absence of unspecified finger(s); Z68.23 Body mass index [BMI] 23.0-23.9, adult
CPT/HCPCS: 36415; 71010; 80053; 80305; 81001; 82550; 82553; 83036; 83605; 83690; 83880; 84484; 85025; 85610; 85730; 87040; 87086; 93005; 93970; 94640; 94644; 99285; C1893; J0696; J1650; J1940; J1956; J2920; J2930; J3475; J3490; J7050; J7611; J7620

== ENCOUNTER 2018-03-15 20:50 | Emergency (ER) | payer MEDICARE ==
[~2018-03-15] VITALS: Ht 162.6 cm; Wt 46.0 kg
[~2018-03-15 20:50] MED LIST changes: +METO-539 PO; -METO50TA5 PO; +PENT400T11 PO; -PENT400T2 PO
[2018-03-15] MEDS ORDERED: IPRATROPIUM/ALBUTEROL 0.5-3(2.5)MG/3ML NEB HHN ONE (21:45)
[2018-03-15] MEDS ORDERED: PREDNISONE 20MG TABLET PO ONE (21:45)
[2018-03-15 22:32] LABS: HEMATOCRIT. 33.6 % (36.0-48.0); HEMOGLOBIN. 10.8 g/dL (12.0-16.0); MEAN CORPUSCULAR VOLUME 83.8 fL (81.0-99.0); MEAN PLATELET VOLUME 8.1 fl (7.4-10.4); PLATELET 300 x1000/uL (130-400); RED BLOOD CELL COUNT 4.02 mill/uL (4.2-5.4); RED CELL DISTRIBUTION WIDTH 20.2 % (11.6-14.6)
[2018-03-15 22:36] LABS: CHLORIDE 105 mEq/L (98-107)
[2018-03-15 22:52] LABS: PLATELET ESTIMATE NORMAL
[2018-03-16 02:28] VITALS: BP 110/47
== END 2018-03-16 02:30 | disposition home or self-care (01) ==
LOC: ER 20:50
DX: J44.1 Chronic obstructive pulmonary disease with (acute) exacerbation (principal); I95.9 Hypotension, unspecified; F32.9 Major depressive disorder, single episode, unspecified; E78.00 Pure hypercholesterolemia, unspecified; Z86.73 Personal history of transient ischemic attack (TIA), and cerebral infarction without residual deficits
CPT/HCPCS: 36415; 71045; 80053; 83690; 84484; 85025; 93005; 94640; 99285; J7512; J7620

== ENCOUNTER 2018-07-30 14:45 | Inpatient (IN) | payer MEDICARE, MEDICAID ==
[~2018-07-30] VITALS: Ht 165.1 cm; Wt 43.6 kg
[2018-07-30] MEDS ORDERED: ASPIRIN 81MG TABLET PO ONE (15:15)
[2018-07-30 15:54] LABS: BASOPHILS % 0.1 % (0.0-2.0); EOSINOPHILS % 0.1 % (0.0-5.0); HEMATOCRIT. 39.8 % (36.0-48.0); HEMOGLOBIN. 13.1 g/dL (12.0-16.0); LYMPHOCYTES % 19.6 % (20.0-50.0); MEAN CORPUSCULAR HEMOGLOBIN 27.3 pg (28.0-32.0); MEAN CORPUSCULAR VOLUME 83.3 fL (81.0-99.0); MEAN PLATELET VOLUME 8.8 fl (7.4-10.4); MONOCYTES % 7.8 % (2.0-8.0); NEUTROPHILS % 72.4 % (40.0-76.0); PLATELET 284 x1000/uL (130-400); RED BLOOD CELL COUNT 4.78 mill/uL (4.2-5.4); RED CELL DISTRIBUTION WIDTH 17.1 % (11.6-14.6)
[2018-07-30 16:01] LABS: D-DIMER 0.82 mg/L FEU (<0.50)
[2018-07-30 16:02] LABS: CHLORIDE 98 mEq/L (98-107)
[2018-07-30] MEDS ORDERED: ENOXAPARIN 60MG/0.6ML SYR SUBCUT ONE (17:30)
[2018-07-30] MEDS ORDERED: IOHEXOL-350 100 ML BOTTLE ONE (19:13)
[2018-07-30] MEDS ORDERED: MAGNESIUM/ALUMINUM HYDROXIDE/SIMETHICONE 30ML UDC PO PRN (21:00)
[2018-07-30] MEDS ORDERED: ACETAMINOPHEN 325MG TABLET PO PRN (21:00)
[2018-07-30] MEDS ORDERED: IPRATROPIUM/ALBUTEROL 0.5-3(2.5)MG/3ML NEB INH PRN (21:00)
[2018-07-30] MEDS ORDERED: ONDANSETRON HCL 4MG/2ML INJ IV PRN (21:00)
[2018-07-30] MEDS ORDERED: DOCUSATE SODIUM 100MG CAPSULE PO PRN (21:00)
[2018-07-30] MEDS ORDERED: HYDROCODONE/ACETAMINOPHEN 5/325MG TABLET PO PRN (21:00)
[2018-07-30] MEDS ORDERED: CLONIDINE 0.1MG TABLET PO PRN (21:00)
[2018-07-30 21:51] LABS: BG BASE EXCESS 1.9 mmol/L (-2.0-2.0); BG CARBOXYHEMOGLOBIN 3.6 % (0.5-1.5); BG FRACTION INSPIRED OXYGEN 21; BG HCO3 ACT 26.4 mmol/L (22.0-26.0); BG METHEMOGLOBIN 0.2 % (0.0-1.5); BG OXYGEN SATURATION 91.7 % (92.0-98.5); BG OXYHEMOGLOBIN 88.2 % (94.0-97.0); BG PCO2 40.8 mmHg (35.0-45.0); BG PH 7.429 (7.350-7.450); BG PO2 60.2 mmHg (75.0-100.0); BG SAMPLE SITE LEFT BRACHIAL; BG TOTAL HEMOGLOBIN 12.4 g/dL (12.0-18.0); BG VENT MODE ROOM AIR
[2018-07-30 23:30] VITALS: BP 129/70
[2018-07-31] VITALS (15 sets, daily range): BP systolic 84–149; BP diastolic 42–109
[2018-07-31 01:18] LABS: CHLORIDE 104 mEq/L (98-107)
[2018-07-31 01:33] LABS: CREATINE KINASE 1240 IU/L (26-192); CREATINE KINASE MB FRACTION 14.7 ng/mL (0.5-3.6)
[2018-07-31] MEDS ORDERED: DILTIAZEM HCL 30MG TABLET PO SCH (06:00)
[2018-07-31] MEDS: ENOXAPARIN 60MG/0.6ML SYR SUBCUT SCH ×2 (06:24→17:07)
[2018-07-31 06:25] LABS: HEMATOCRIT. 35.4 % (36.0-48.0); HEMOGLOBIN. 11.6 g/dL (12.0-16.0); MEAN CORPUSCULAR HEMOGLOBIN 27.3 pg (28.0-32.0); MEAN CORPUSCULAR VOLUME 83.6 fL (81.0-99.0); MEAN PLATELET VOLUME 9.2 fl (7.4-10.4); PLATELET 236 x1000/uL (130-400); RED BLOOD CELL COUNT 4.24 mill/uL (4.2-5.4); RED CELL DISTRIBUTION WIDTH 17.1 % (11.6-14.6)
[2018-07-31] MEDS: ASPIRIN 81MG EC TABLET PO SCH (08:49)
[2018-07-31] MEDS: SULFAMETHOXAZOLE/TRIMETHOPRIM 800/160MG TABLET PO SCH (08:49)
[2018-07-31] MEDS: BUDESONIDE 0.5MG/2ML NEB HHN SCH ×2 (12:03→20:39)
[2018-07-31 13:27] LABS: PLATELET ESTIMATE NORMAL
[2018-07-31] MEDS ORDERED: SODIUM CHLORIDE 0.45% 500 ML IV ONE (15:15)
[2018-07-31] MEDS: FAMOTIDINE 20MG TABLET PO SCH (22:17)
[2018-07-31] MEDS: METOPROLOL TARTRATE 50MG TABLET PO SCH (22:19)
[2018-07-31] MEDS: TRAZODONE HCL 100MG TABLET PO SCH (22:20)
[2018-08-01] VITALS (19 sets, daily range): BP systolic 81–126; BP diastolic 40–78
[2018-08-01] MEDS: ENOXAPARIN 60MG/0.6ML SYR SUBCUT SCH ×2 (05:50→17:02)
[2018-08-01 06:31] LABS: HEMATOCRIT. 34.2 % (36.0-48.0); HEMOGLOBIN. 10.9 g/dL (12.0-16.0); MEAN CORPUSCULAR HEMOGLOBIN 26.9 pg (28.0-32.0); MEAN CORPUSCULAR VOLUME 83.9 fL (81.0-99.0); MEAN PLATELET VOLUME 9.1 fl (7.4-10.4); PLATELET 231 x1000/uL (130-400); RED BLOOD CELL COUNT 4.07 mill/uL (4.2-5.4); RED CELL DISTRIBUTION WIDTH 17.2 % (11.6-14.6)
[2018-08-01 06:51] LABS: CHLORIDE 105 mEq/L (98-107)
[2018-08-01 07:18] LABS: CREATINE KINASE 511 IU/L (26-192)
[2018-08-01] MEDS: ASPIRIN 81MG EC TABLET PO SCH (08:32)
[2018-08-01] MEDS: CLOPIDOGREL 75MG TABLET PO SCH (08:32)
[2018-08-01] MEDS: SULFAMETHOXAZOLE/TRIMETHOPRIM 800/160MG TABLET PO SCH (08:32)
[2018-08-01] MEDS: METOPROLOL TARTRATE 50MG TABLET PO SCH ×2 (08:33→21:00)
[2018-08-01] MEDS: BUDESONIDE 0.5MG/2ML NEB HHN SCH ×3 (09:20→21:40)
[2018-08-01 12:53] LABS: PLATELET ESTIMATE NORMAL
[2018-08-01] MEDS: FAMOTIDINE 20MG TABLET PO SCH (22:10)
[2018-08-01] MEDS: TRAZODONE HCL 100MG TABLET PO SCH (22:10)
[2018-08-01] MEDS: GUAIFENESIN 200MG/10ML SUGAR FREE UDC PO PRN (23:03)
[2018-08-02] VITALS (12 sets, daily range): BP systolic 92–135; BP diastolic 33–92
[2018-08-02] MEDS: GUAIFENESIN 200MG/10ML SUGAR FREE UDC PO PRN (06:02)
[2018-08-02] MEDS: ENOXAPARIN 60MG/0.6ML SYR SUBCUT SCH ×2 (06:03→21:14)
[2018-08-02 07:21] LABS: HEMATOCRIT. 35.2 % (36.0-48.0); HEMOGLOBIN. 11.5 g/dL (12.0-16.0); MEAN CORPUSCULAR HEMOGLOBIN 27.8 pg (28.0-32.0); MEAN CORPUSCULAR VOLUME 85.2 fL (81.0-99.0); MEAN PLATELET VOLUME 9.2 fl (7.4-10.4); PLATELET 216 x1000/uL (130-400); RED BLOOD CELL COUNT 4.13 mill/uL (4.2-5.4); RED CELL DISTRIBUTION WIDTH 17.4 % (11.6-14.6)
[2018-08-02] MEDS: ASPIRIN 81MG EC TABLET PO SCH (08:27)
[2018-08-02] MEDS: CLOPIDOGREL 75MG TABLET PO SCH (08:27)
[2018-08-02] MEDS: SULFAMETHOXAZOLE/TRIMETHOPRIM 800/160MG TABLET PO SCH (08:27)
[2018-08-02] MEDS: METOPROLOL TARTRATE 50MG TABLET PO SCH ×2 (08:30→21:13)
[2018-08-02 09:11] LABS: ABSOLUTE EOSINOPHILS 0.2 x10E3/uL (0.0-0.4); ABSOLUTE LYMPHOCYTES 2.6 x10E3/uL (0.7-3.1); ABSOLUTE MONOCYTES 0.7 x10E3/uL (0.1-0.9); ABSOLUTE NEUTROPHILS 1.2 x10E3/uL (1.4-7.0); BASOPHILS 0 % (Not Estab.); HEMATOCRIT 33.4 % (34.0-46.6); HEMOGLOBIN 10.5 g/dL (11.1-15.9); IMMATURE GRANULOCYTES 0 % (Not Estab.); LYMPHOCYTES 56 % (Not Estab.); MEAN CORPUSCULAR HEMOGLOBIN 26.2 pg (26.6-33.0); MEAN CORPUSCULAR HGB CONC. 31.4 g/dL (31.5-35.7); MEAN CORPUSCULAR VOLUME 83 fL (79-97); MONOCYTES 15 % (Not Estab.); NEUTROPHILS 24 % (Not Estab.); PLATELETS 266 x10E3/uL (150-379); RBC 4.01 x10E6/uL (3.77-5.28); RED CELL DISTRIBUTION WIDTH 17.1 % (12.3-15.4); WBC 4.7 x10E3/uL (3.4-10.8)
[2018-08-02 09:52] LABS: CHLORIDE 105 mEq/L (98-107)
[2018-08-02] MEDS ORDERED: ZOLPIDEM TARTRATE 5MG TABLET PO PRN (10:00)
[2018-08-02] MEDS: COMPLERA XX SCH (10:46)
[2018-08-02 13:11] LABS: % CD 3 POS. LYMPHOCYTES 71.5 % (57.5-86.2); % CD 4 POS. LYMPHOCYTES 30.2 % (30.8-58.5); % CD 8 POS. LYMPH 40.7 % (12.0-35.5); ABSOLUTE CD 3 1859 /uL (622-2402); ABSOLUTE CD 4 HELPER 785 /uL (359-1519); ABSOLUTE CD 8 SUPPRESSOR 1058 /uL (109-897); CD4/CD8 RATIO 0.74 (0.92-3.72)
[2018-08-02] MEDS: BUDESONIDE 0.5MG/2ML NEB HHN SCH (13:29)
[2018-08-02 14:57] LABS: PLATELET ESTIMATE NORMAL
[2018-08-02] MEDS: TRAZODONE HCL 100MG TABLET PO SCH (21:12)
[2018-08-02] MEDS: FAMOTIDINE 20MG TABLET PO SCH (21:12)
[2018-08-03] VITALS (9 sets, daily range): BP systolic 96–121; BP diastolic 43–64
[2018-08-03] MEDS: BUDESONIDE 0.5MG/2ML NEB HHN SCH ×3 (01:18→01:50)
[2018-08-03 06:55] LABS: HEMATOCRIT. 34.1 % (36.0-48.0); MEAN PLATELET VOLUME 8.8 fl (7.4-10.4); PLATELET 224 x1000/uL (130-400); RED BLOOD CELL COUNT 4.06 mill/uL (4.2-5.4); RED CELL DISTRIBUTION WIDTH 17.4 % (11.6-14.6)
[2018-08-03 07:16] LABS: CHLORIDE 103 mEq/L (98-107)
[2018-08-03 08:03] LABS: PLATELET ESTIMATE NORMAL
[2018-08-03] MEDS: ASPIRIN 81MG EC TABLET PO SCH (09:01)
[2018-08-03] MEDS: CLOPIDOGREL 75MG TABLET PO SCH (09:01)
[2018-08-03] MEDS: COMPLERA XX SCH (09:02)
[2018-08-03] MEDS: SULFAMETHOXAZOLE/TRIMETHOPRIM 800/160MG TABLET PO SCH (09:02)
[2018-08-03] MEDS: METOPROLOL TARTRATE 50MG TABLET PO SCH (09:02)
[2018-08-03] MEDS: ENOXAPARIN 60MG/0.6ML SYR SUBCUT SCH (09:02)
[2018-08-03] MEDS ORDERED: ASPI-1158 PO (12:41)
[2018-08-04 04:13] LABS: QFT MITOGEN VALUE >10.00 IU/mL (.); QFT TB GOLD PLUS Negative (Negative); QFT TB1 AG VALUE 0.62 IU/mL (.)
[2018-08-07] MEDS ORDERED: AZITHROMYCIN 600 MG TABLET PO SCH (09:00)
[2018-08-07 13:06] LABS: *HIV-1 RNA BY PCR 160 copies/mL (.)
== END 2018-08-03 16:55 | DRG 206 ==
LOC: ER 14:45 → 3WST 17:56 → EDBEDREQTM 17:59 → EDBEDREQ 17:59 → ENRESERV 19:41 → CANRESERV 19:41 → EDBEDREQSVC 21:42 → EDBEDREQTM 21:42 → EDBEDREQ 21:42 → ENRESERV 21:50
PROVIDERS: ADMIT Internal Medicine; ATTEND Internal Medicine
DX: R91.1 Solitary pulmonary nodule (principal); B20 Human immunodeficiency virus [HIV] disease; Z66 Do not resuscitate; I10 Essential (primary) hypertension; W18.30XA Fall on same level, unspecified, initial encounter; J44.9 Chronic obstructive pulmonary disease, unspecified; J45.909 Unspecified asthma, uncomplicated; Y93.01 Activity, walking, marching and hiking; M25.511 Pain in right shoulder; F12.90 Cannabis use, unspecified, uncomplicated; Y92.480 Sidewalk as the place of occurrence of the external cause; Z86.73 Personal history of transient ischemic attack (TIA), and cerebral infarction without residual deficits; Z79.02 Long term (current) use of antithrombotics/antiplatelets; Z87.891 Personal history of nicotine dependence; Z99.81 Dependence on supplemental oxygen; Z86.718 Personal history of other venous thrombosis and embolism; Y93.9 Activity, unspecified; Y92.89 Other specified places as the place of occurrence of the external cause; Y99.8 Other external cause status; Z79.899 Other long term (current) drug therapy
CPT/HCPCS: 36415; 36600; 71045; 71275; 73030; 73560; 80048; 80061; 82375; 82550; 82553; 82805; 83735; 83880; 84443; 84484; 85379; 86359; 86360; 86480; 87186; 87536; 93005; 93306; 93970; 96372; 97162; 99285; J1650; J7620; J7626; Q9967

== ENCOUNTER 2019-01-26 04:56 | Inpatient (IN) | payer MEDICARE, MEDICAID ==
[~2019-01-26] VITALS: Ht 152.4 cm; Wt 47.6 kg
[~2019-01-26 04:56] MED LIST changes: +ASPI-1158 PO
[2019-01-26] MEDS ORDERED: SODIUM CHLORIDE 0.9% 1,000 ML IV ONE ×2 (06:44→12:15)
[2019-01-26] MEDS ORDERED: LORAZEPAM 2MG/ML CPJ IV ONE (06:45)
[2019-01-26 07:45] LABS: HEMATOCRIT. 37.8 % (36.0-48.0); HEMOGLOBIN. 12.2 g/dL (12.0-16.0); MEAN CORPUSCULAR HEMOGLOBIN 27.3 pg (28.0-32.0); MEAN CORPUSCULAR VOLUME 84.3 fL (81.0-99.0); MEAN PLATELET VOLUME 8.4 fl (7.4-10.4); PLATELET 558 x1000/uL (130-400); RED BLOOD CELL COUNT 4.48 mill/uL (4.2-5.4); RED CELL DISTRIBUTION WIDTH 20.5 % (11.6-14.6)
[2019-01-26 08:14] LABS: PLATELET ESTIMATE INCREASED
[2019-01-26 09:04] LABS: CHLORIDE 108 mEq/L (98-107)
[2019-01-26] MEDS ORDERED: DEXTROSE 50% WATER 50ML SYRINGE IV ONE (09:13)
[2019-01-26] MEDS: DEXTROSE 50% WATER 50ML SYRINGE IV ONE ×2 (09:17→09:18)
[2019-01-26 16:00] VITALS: BP 138/55
[2019-01-26] MEDS ORDERED: MAGNESIUM/ALUMINUM HYDROXIDE/SIMETHICONE 30ML UDC PO PRN (16:15)
[2019-01-26] MEDS ORDERED: ACETAMINOPHEN 325MG TABLET PO PRN (16:15)
[2019-01-26] MEDS ORDERED: TRAMADOL 50MG TABLET PO PRN (16:15)
[2019-01-26] MEDS ORDERED: KETOROLAC 15MG/ML VIAL IV PRN (16:15)
[2019-01-26] MEDS ORDERED: ONDANSETRON HCL 4MG/2ML INJ IV PRN (16:15)
[2019-01-26] MEDS ORDERED: NITROGLYCERIN 0.4MG TABLET SL SL PRN (16:15)
[2019-01-26] MEDS ORDERED: CLONIDINE 0.1MG TABLET PO PRN (16:15)
[2019-01-26] MEDS ORDERED: DOCUSATE SODIUM 100MG CAPSULE PO PRN (16:15)
[2019-01-26] MEDS ORDERED: GUAIFENESIN 200MG/10ML SUGAR FREE UDC PO PRN (16:15)
[2019-01-26 18:00] VITALS: BP 133/69
[2019-01-26] MEDS: ENOXAPARIN 30MG/0.3ML SYR SUBCUT SCH (18:26)
[2019-01-26] MEDS: DILTIAZEM HCL 60MG TABLET PO SCH (19:05)
[2019-01-26 20:00] VITALS: BP 125/52
[2019-01-26] MEDS ORDERED: INFLUENZA VIRUS VACCINE(AFLURIA) 0.5ML SYR IM ONE (20:30)
[2019-01-26] MEDS ORDERED: METOPROLOL TARTRATE 25MG TABLET PO SCH (21:00)
[2019-01-26] MEDS ORDERED: ZOLPIDEM TARTRATE 5MG TABLET PO PRN (21:00)
[2019-01-26] MEDS: ASCORBIC ACID 500 MG TABLET PO SCH (21:04)
[2019-01-26] MEDS: FAMOTIDINE 20MG TABLET PO SCH (21:04)
[2019-01-26 22:00] VITALS: BP 118/52
[2019-01-27 00:14] LABS: LDL CHOLESTEROL 98 mg/dL (5-100)
[2019-01-27 00:16] LABS: CREATINE KINASE 157 IU/L (26-192); HDL CHOLESTEROL 70 mg/dL (40-59)
[2019-01-27 00:17] LABS: T4 FREE 1.07 ng/dL (0.76-1.46)
[2019-01-27 00:19] LABS: CREATINE KINASE MB FRACTION 2.8 ng/mL (0.5-3.6)
[2019-01-27] MEDS: DILTIAZEM HCL 60MG TABLET PO SCH ×4 (00:45→18:00)
[2019-01-27 01:32] LABS: FOLIC ACID (FOLATE) SERUM >20 ng/mL ng/mL (>5.38)
[2019-01-27 01:50] LABS: VITAMIN B12 SERUM 806 pg/mL (211-911)
[2019-01-27 04:20] VITALS: BP 106/48
[2019-01-27] MEDS: IPRATROPIUM/ALBUTEROL 0.5-3(2.5)MG/3ML NEB INH PRN ×2 (05:51→20:29)
[2019-01-27 05:52] VITALS: BP 115/56
[2019-01-27 07:46] LABS: CREATINE KINASE 126 IU/L (26-192)
[2019-01-27 08:00] VITALS: BP 117/50
[2019-01-27] MEDS: ZINC SULFATE 220 MG ( 50 ) CAPSULE PO SCH (09:00)
[2019-01-27] MEDS: CLOPIDOGREL 75MG TABLET PO SCH (09:27)
[2019-01-27] MEDS: ASCORBIC ACID 500 MG TABLET PO SCH ×2 (09:28→20:51)
[2019-01-27] MEDS: ASPIRIN 81MG EC TABLET PO SCH (09:28)
[2019-01-27 12:00] VITALS: BP 131/79
[2019-01-27 16:00] VITALS: BP 114/97
[2019-01-27] MEDS: ENOXAPARIN 30MG/0.3ML SYR SUBCUT SCH (18:03)
[2019-01-27 20:05] VITALS: BP 154/56
[2019-01-27] MEDS: FAMOTIDINE 20MG TABLET PO SCH (20:51)
[2019-01-28 00:05] VITALS: BP 145/89
[2019-01-28 04:00] VITALS: BP 111/54
[2019-01-28] MEDS: DILTIAZEM HCL 60MG TABLET PO SCH ×4 (05:30→17:34)
[2019-01-28 08:00] VITALS: BP 104/53
[2019-01-28] MEDS: ASPIRIN 81MG EC TABLET PO SCH (09:00)
[2019-01-28] MEDS: ZINC SULFATE 220 MG ( 50 ) CAPSULE PO SCH (09:00)
[2019-01-28] MEDS: CLOPIDOGREL 75MG TABLET PO SCH (09:13)
[2019-01-28] MEDS: ASCORBIC ACID 500 MG TABLET PO SCH ×2 (09:13→21:02)
[2019-01-28] MEDS ORDERED: ZOLPIDEM TARTRATE 5MG TABLET PO PRN (09:30)
[2019-01-28] MEDS: MULTIVITAMINS,THER W-MINERALS TABLET PO SCH (11:32)
[2019-01-28 12:00] VITALS: BP 138/52
[2019-01-28] MEDS: IPRATROPIUM/ALBUTEROL 0.5-3(2.5)MG/3ML NEB INH PRN (14:14)
[2019-01-28 16:00] VITALS: BP 108/56
[2019-01-28] MEDS: ENOXAPARIN 30MG/0.3ML SYR SUBCUT SCH (17:33)
[2019-01-28 20:05] VITALS: BP 127/76
[2019-01-28] MEDS: FAMOTIDINE 20MG TABLET PO SCH (21:02)
[2019-01-29 00:05] VITALS: BP 119/68
[2019-01-29 04:00] VITALS: BP 119/58
[2019-01-29] MEDS: DILTIAZEM HCL 60MG TABLET PO SCH ×3 (05:32→14:27)
[2019-01-29] MEDS: IPRATROPIUM/ALBUTEROL 0.5-3(2.5)MG/3ML NEB INH PRN ×2 (05:49→11:57)
[2019-01-29 08:00] VITALS: BP 111/51
[2019-01-29] MEDS: ZINC SULFATE 220 MG ( 50 ) CAPSULE PO SCH (09:00)
[2019-01-29] MEDS: ASCORBIC ACID 500 MG TABLET PO SCH (09:00)
[2019-01-29] MEDS: ASPIRIN 81MG EC TABLET PO SCH (09:12)
[2019-01-29] MEDS: MULTIVITAMINS,THER W-MINERALS TABLET PO SCH (09:12)
[2019-01-29] MEDS: CLOPIDOGREL 75MG TABLET PO SCH (09:12)
[2019-01-29 10:38] VITALS: BP 123/75
[2019-01-29 12:00] VITALS: BP 131/48
[2019-01-29 16:00] VITALS: BP 133/70
== END 2019-01-29 17:15 | DRG 641 ==
LOC: ER 04:56 → 7WST 12:29
PROVIDERS: ADMIT Internal Medicine; ATTEND Internal Medicine
DX: E16.2 Hypoglycemia, unspecified (principal); I47.1 Supraventricular tachycardia; F17.210 Nicotine dependence, cigarettes, uncomplicated; I10 Essential (primary) hypertension; J45.909 Unspecified asthma, uncomplicated; F19.10 Other psychoactive substance abuse, uncomplicated; F15.10 Other stimulant abuse, uncomplicated; F12.10 Cannabis abuse, uncomplicated; Z86.73 Personal history of transient ischemic attack (TIA), and cerebral infarction without residual deficits; Z79.82 Long term (current) use of aspirin; Z79.899 Other long term (current) drug therapy
CPT/HCPCS: 36415; 71045; 80061; 82550; 82553; 82607; 82746; 82962; 83036; 83605; 84439; 84443; 84484; 93005; 93970; 94640; 96361; 96374; 96375; 99285; J1650; J2060; J7030; J7620

== ENCOUNTER 2019-02-19 00:17 | Inpatient (IN) | payer MEDICARE, MEDICAID ==
[~2019-02-19] VITALS: Ht 152.4 cm; Wt 44.9 kg
[~2019-02-19 00:17] MED LIST changes: -PENT400T11 PO; +PENT400T16 PO
[2019-02-19] MEDS ORDERED: SODIUM CHLORIDE 0.9% 1,000 ML IV ONE ×3 (01:38→06:30)
[2019-02-19 03:08] LABS: HEMATOCRIT. 32.9 % (36.0-48.0); HEMOGLOBIN. 10.8 g/dL (12.0-16.0); MEAN CORPUSCULAR HEMOGLOBIN 28.4 pg (28.0-32.0); MEAN CORPUSCULAR VOLUME 86.4 fL (81.0-99.0); MEAN PLATELET VOLUME 8.6 fl (7.4-10.4); PLATELET 281 x1000/uL (130-400); RED CELL DISTRIBUTION WIDTH 19.6 % (11.6-14.6)
[2019-02-19 03:17] LABS: CHLORIDE 100 mEq/L (98-107)
[2019-02-19 03:19] LABS: PARTIAL THROMBOPLASTIN TIME 24.2 sec (23.4-31.0); PROTHROMBIN TIME 10.3 sec (9.6-11.0)
[2019-02-19 03:21] LABS: ETHANOL BLOOD 58 mg/dL
[2019-02-19 04:47] LABS: PLATELET ESTIMATE NORMAL
[2019-02-19 08:43] LABS: CLARITY URINE CLEAR (CLEAR); COLOR URINE YELLOW (YELLOW); KETONES URINE 2+ (NEGATIVE); LEUKOCYTE ESTERASE URINE NEGATIVE (NEGATIVE); NITRITE URINE NEGATIVE (NEGATIVE); OCCULT BLOOD URINE TRACE (NEGATIVE); PROTEIN URINE 1+ (NEGATIVE); SPECIFIC GRAVITY URINE 1.017 (1.005-1.030); UROBILINOGEN URINE 0.2 E.U./dL (0.2-1.0)
[2019-02-19 09:06] LABS: *AMPHETAMINES SCREEN URINE NEGATIVE (NEGATIVE); *BARBITURATES SCREEN URINE NEGATIVE (NEGATIVE); *BENZODIAZEPINES SCREEN URINE NEGATIVE (NEGATIVE); *COCAINE SCREEN URINE PRESUMTIVE POSITIVE (NEGATIVE)
[2019-02-19 09:07] LABS: CANNABINOID URINE SCREEN NEGATIVE (NEGATIVE); METHADONE URINE SCREEN NEGATIVE (NEGATIVE); OPIATES URINE SCREEN NEGATIVE (NEGATIVE); PHENCYCLIDINE URINE SCREEN NEGATIVE (NEGATIVE)
[2019-02-19 10:30] VITALS: BP 150/45
[2019-02-19 13:50] VITALS: BP 155/68
[2019-02-19 16:00] VITALS: BP 142/68
[2019-02-19] MEDS: ACETAMINOPHEN 325MG TABLET PO PRN (17:32)
[2019-02-19 18:02] VITALS: BP 155/68
[2019-02-19 18:19] LABS: BASOPHILS % 0.4 % (0.0-2.0); HEMATOCRIT. 28.8 % (36.0-48.0); HEMOGLOBIN. 9.2 g/dL (12.0-16.0); LYMPHOCYTES % 40.7 % (20.0-50.0); MEAN CORPUSCULAR HEMOGLOBIN 27.5 pg (28.0-32.0); MEAN CORPUSCULAR VOLUME 86.2 fL (81.0-99.0); MEAN PLATELET VOLUME 9.1 fl (7.4-10.4); MONOCYTES % 7.3 % (2.0-8.0); NEUTROPHILS % 51.6 % (40.0-76.0); PLATELET 246 x1000/uL (130-400); RED BLOOD CELL COUNT 3.34 mill/uL (4.2-5.4); RED CELL DISTRIBUTION WIDTH 19.7 % (11.6-14.6)
[2019-02-19 18:22] LABS: CHLORIDE 109 mEq/L (98-107)
[2019-02-19 19:14] LABS: CLARITY URINE CLEAR (CLEAR); COLOR URINE YELLOW (YELLOW); KETONES URINE 2+ (NEGATIVE); LEUKOCYTE ESTERASE URINE TRACE (NEGATIVE); NITRITE URINE NEGATIVE (NEGATIVE); OCCULT BLOOD URINE TRACE (NEGATIVE); PH URINE 5.5 (4.5-8.0); PROTEIN URINE NEGATIVE (NEGATIVE); SPECIFIC GRAVITY URINE 1.013 (1.005-1.030); UROBILINOGEN URINE 0.2 E.U./dL (0.2-1.0)
[2019-02-19 20:00] VITALS: BP 145/57
[2019-02-20] VITALS: BP 138/53
[2019-02-20] MEDS: SODIUM CHLORIDE 0.9% 1,000 ML IV SCH ×2 (00:35→10:54)
[2019-02-20 04:00] VITALS: BP 148/59
[2019-02-20] MEDS: ACETAMINOPHEN 325MG TABLET PO PRN (04:58)
[2019-02-20 08:00] VITALS: BP 147/61
[2019-02-20] MEDS: ENOXAPARIN 30MG/0.3ML SYR SUBCUT SCH (08:57)
[2019-02-20 12:00] VITALS: BP 142/85
[2019-02-20] MEDS ORDERED: COMPLERA PO SCH (13:30)
[2019-02-20] MEDS: ALBUTEROL (0.083%) 2.5MG/3ML NEB HHN SCH ×3 (13:54→21:04)
[2019-02-20 16:00] VITALS: BP 139/79
[2019-02-20] MEDS: ASPIRIN 81MG EC TABLET PO SCH (17:00)
[2019-02-20] MEDS: PENTOXIFYLLINE 400MG TABLET PO SCH (17:00)
[2019-02-20] MEDS: FAMOTIDINE 20MG TABLET PO SCH (17:00)
[2019-02-20 20:00] VITALS: BP 145/71
[2019-02-20] MEDS: METOPROLOL TARTRATE 50MG TABLET PO SCH (21:00)
[2019-02-21] VITALS: BP 148/66
[2019-02-21] MEDS: ALBUTEROL (0.083%) 2.5MG/3ML NEB HHN SCH ×4 (01:09→13:43)
[2019-02-21 04:00] VITALS: BP 150/75
[2019-02-21 08:00] VITALS: BP 153/67
[2019-02-21] MEDS: PENTOXIFYLLINE 400MG TABLET PO SCH ×2 (08:10→13:10)
[2019-02-21] MEDS: ENOXAPARIN 30MG/0.3ML SYR SUBCUT SCH (09:00)
[2019-02-21] MEDS: FAMOTIDINE 20MG TABLET PO SCH (09:00)
[2019-02-21] MEDS: METOPROLOL TARTRATE 50MG TABLET PO SCH ×3 (09:13→23:17)
[2019-02-21] MEDS: PRENATAL VIT/FE FUMARATE/FA TABLET PO SCH (09:14)
[2019-02-21] MEDS: ASPIRIN 81MG EC TABLET PO SCH (09:14)
[2019-02-21] MEDS: CLOPIDOGREL 75MG TABLET PO SCH (09:17)
[2019-02-21 12:00] VITALS: BP 142/78
[2019-02-21 16:00] VITALS: BP 147/66
[2019-02-21] MEDS: ALBUTEROL (0.083%) 2.5MG/3ML NEB HHN PRN ×2 (18:00→21:26)
[2019-02-21 20:00] VITALS: BP 140/70
[2019-02-22] VITALS: BP 138/72
[2019-02-22] MEDS: ALBUTEROL (0.083%) 2.5MG/3ML NEB HHN PRN (02:10)
[2019-02-22 04:00] VITALS: BP 113/50
[2019-02-22 08:00] VITALS: BP 125/61
[2019-02-22] MEDS: ALBUTEROL (0.083%) 2.5MG/3ML NEB HHN SCH ×2 (08:48→14:15)
[2019-02-22] MEDS: ENOXAPARIN 30MG/0.3ML SYR SUBCUT SCH (09:00)
[2019-02-22] MEDS: ASPIRIN 81MG EC TABLET PO SCH (09:03)
[2019-02-22] MEDS: CLOPIDOGREL 75MG TABLET PO SCH (09:03)
[2019-02-22] MEDS: PRENATAL VIT/FE FUMARATE/FA TABLET PO SCH (09:03)
[2019-02-22] MEDS: FAMOTIDINE 20MG TABLET PO SCH (09:03)
[2019-02-22] MEDS: PENTOXIFYLLINE 400MG TABLET PO SCH ×2 (09:03→13:10)
[2019-02-22 12:00] VITALS: BP 131/70
== END 2019-02-22 15:37 | DRG 917 ==
LOC: ER 00:17 → 7WST 06:31 → ENRESERV 07:42 → 7WST 12:28
PROVIDERS: ADMIT Family Medicine; ATTEND Family Medicine
DX: T43.212A Poisoning by selective serotonin and norepinephrine reuptake inhibitors, intentional self-harm, initial encounter (principal); J96.01 Acute respiratory failure with hypoxia; R45.851 Suicidal ideations; B20 Human immunodeficiency virus [HIV] disease; Z68.1 Body mass index [BMI] 19.9 or less, adult; J44.9 Chronic obstructive pulmonary disease, unspecified; I10 Essential (primary) hypertension; F17.200 Nicotine dependence, unspecified, uncomplicated; F12.90 Cannabis use, unspecified, uncomplicated; Z86.73 Personal history of transient ischemic attack (TIA), and cerebral infarction without residual deficits; Z91.5 Personal history of self-harm; Z79.899 Other long term (current) drug therapy; Z79.82 Long term (current) use of aspirin; Y92.89 Other specified places as the place of occurrence of the external cause
CPT/HCPCS: 36415; 71045; 80048; 80305; 80307; 80320; 80329; 82140; 83605; 93005; 94640; 96374; 97162; 99285; J1650; J7030; J7611; G0480

== ENCOUNTER 2019-03-10 20:34 | Inpatient (IN) | payer MEDICARE, MEDICAID ==
[~2019-03-10] VITALS: Ht 152.4 cm; Wt 54.0 kg
[2019-03-10] MEDS ORDERED: IPRATROPIUM BROMIDE (0.02%) 0.5MG/2.5ML NEB HHN STA (20:50)
[2019-03-10] MEDS ORDERED: METHYLPREDNISOLONE SOD SUCC 125 MG/2 ML VIAL IV STA (20:50)
[2019-03-10] MEDS ORDERED: ALBUTEROL (0.083%) 2.5MG/3ML NEB HHN STA (20:50)
[2019-03-10] MEDS ORDERED: MAGNESIUM 2 G PREMIX 50 ML IV ONE (21:00)
[2019-03-10] MEDS ORDERED: DOXYCYCLINE HYCLATE 100 MG/VIAL IV ONE (21:00)
[2019-03-10] MEDS ORDERED: ASPIRIN 81MG TABLET PO ONE (21:00)
[2019-03-10] MEDS ORDERED: DOXYCYCLINE 100MG in DEXTROSE 5% WATER 100ML IV SCH (21:00)
[2019-03-10 21:28] LABS: BG BASE EXCESS -13.6 mmol/L (-2.0-2.0); BG CARBOXYHEMOGLOBIN 2.5 % (0.5-1.5); BG DEOXYHEMOGLOBIN 0.1 % (0.0-5.0); BG FRACTION INSPIRED OXYGEN 100; BG HCO3 ACT 14.2 mmol/L (22.0-26.0); BG METHEMOGLOBIN 0.3 % (0.0-1.5); BG OXYGEN SATURATION 99.9 % (92.0-98.5); BG OXYHEMOGLOBIN 97.1 % (94.0-97.0); BG PCO2 40.2 mmHg (35.0-45.0); BG PH 7.167 (7.350-7.450); BG PO2 424.2 mmHg (75.0-100.0); BG SAMPLE SITE RIGHT RADIAL; BG TOTAL HEMOGLOBIN 12.8 g/dL (12.0-18.0); BG VENT MODE MASK - NRB
[2019-03-10 21:43] LABS: HEMATOCRIT. 36.8 % (36.0-48.0); HEMOGLOBIN. 11.5 g/dL (12.0-16.0); MEAN CORPUSCULAR HEMOGLOBIN 27.4 pg (28.0-32.0); MEAN CORPUSCULAR VOLUME 87.6 fL (81.0-99.0); MEAN PLATELET VOLUME 8.6 fl (7.4-10.4); PLATELET 291 x1000/uL (130-400); RED CELL DISTRIBUTION WIDTH 19.2 % (11.6-14.6)
[2019-03-10 21:50] LABS: CHLORIDE 99 mEq/L (98-107)
[2019-03-10 21:51] LABS: PROTHROMBIN TIME 10.1 sec (9.6-11.0)
[2019-03-10] MEDS ORDERED: SODIUM CHLORIDE 0.9% 1,500 ML IV SCH (22:15)
[2019-03-10] MEDS ORDERED: VANCOMYCIN 1 G PREMIX 200 ML IV NR (22:15)
[2019-03-10] MEDS ORDERED: SODIUM CHLORIDE 0.9% 1000ML BAG (SEPSIS BOLUS) IV ONE (22:15)
[2019-03-10] MEDS ORDERED: PIPERACILLIN/TAZOBACTAM 3.375GM/50ML PREMIX IV ONE (22:15)
[2019-03-10] MEDS ORDERED: PIPERACILLIN/TAZ 3.375G PREMIX 50 ML IV NR (22:15)
[2019-03-10 22:18] LABS: PLATELET ESTIMATE NORMAL
[2019-03-10] MEDS ORDERED: MORPHINE SULFATE 4 MG/ML CPJ (NOT FOR IM USE) IV ONE (22:30)
[2019-03-10] MEDS ORDERED: NITROGLYCERIN 0.4MG TABLET SL SL ONE (23:00)
[2019-03-11] VITALS (38 sets, daily range): BP systolic 103–173; BP diastolic 56–106
[2019-03-11 01:25] LABS: CLARITY URINE CLEAR (CLEAR); COLOR URINE YELLOW (YELLOW); KETONES URINE 1+ (NEGATIVE); LEUKOCYTE ESTERASE URINE NEGATIVE (NEGATIVE); NITRITE URINE NEGATIVE (NEGATIVE); OCCULT BLOOD URINE TRACE (NEGATIVE); PROTEIN URINE 1+ (NEGATIVE); SPECIFIC GRAVITY URINE 1.014 (1.005-1.030); UROBILINOGEN URINE 0.2 E.U./dL (0.2-1.0)
[2019-03-11] MEDS ORDERED: MORPHINE SULFATE 4 MG/ML CPJ (NOT FOR IM USE) IV ONE (02:00)
[2019-03-11] MEDS: HYDROMORPHONE HCL/PF 2MG/ML CPJ IV PRN ×4 (04:18→19:13)
[2019-03-11] MEDS ORDERED: TRAZ-213 PO (04:46)
[2019-03-11] MEDS ORDERED: NA PHOS,M-B/NA PHOS,DI-BA ENEMA 118ML PR PRN (06:15)
[2019-03-11] MEDS ORDERED: CLONIDINE 0.1MG TABLET PO PRN (06:15)
[2019-03-11] MEDS ORDERED: HYDROCODONE/ACETAMINOPHEN 10/325MG TABLET PO PRN (06:15)
[2019-03-11] MEDS ORDERED: ACETAMINOPHEN 325MG TABLET PO PRN (06:15)
[2019-03-11] MEDS ORDERED: ENOXAPARIN 40MG/0.4ML SYR SUBCUT SCH (06:15)
[2019-03-11] MEDS ORDERED: DOCUSATE SODIUM 100MG CAPSULE PO PRN (06:15)
[2019-03-11] MEDS ORDERED: ONDANSETRON HCL 4MG/2ML INJ IV PRN (06:15)
[2019-03-11] MEDS ORDERED: IPRATROPIUM/ALBUTEROL 0.5-3(2.5)MG/3ML NEB INH PRN (06:15)
[2019-03-11] MEDS ORDERED: DIPHENHYDRAMINE 50MG/ML VIAL IV PRN (06:15)
[2019-03-11] MEDS ORDERED: LEVOFLOXACIN 500MG PREMIX 100 ML IV SCH ×2 (06:15→08:30)
[2019-03-11] MEDS ORDERED: MAGNESIUM/ALUMINUM HYDROXIDE/SIMETHICONE 30ML UDC PO PRN (06:15)
[2019-03-11] MEDS ORDERED: GUAIFENESIN 200MG/10ML SUGAR FREE UDC PO PRN (06:15)
[2019-03-11] MEDS: LORAZEPAM 2MG/ML CPJ IV PRN ×4 (07:37→22:41)
[2019-03-11 07:48] LABS: BG BASE EXCESS -7.4 mmol/L (-2.0-2.0); BG CARBOXYHEMOGLOBIN 0.3 % (0.5-1.5); BG DEOXYHEMOGLOBIN 0.3 % (0.0-5.0); BG HCO3 ACT 20.6 mmol/L (22.0-26.0); BG METHEMOGLOBIN 0.2 % (0.0-1.5); BG OXYGEN SATURATION 99.7 % (92.0-98.5); BG OXYHEMOGLOBIN 99.2 % (94.0-97.0); BG PCO2 53.2 mmHg (35.0-45.0); BG PH 7.205 (7.350-7.450); BG PO2 436.8 mmHg (75.0-100.0); BG SAMPLE SITE RIGHT RADIAL; BG TOTAL HEMOGLOBIN 10.7 g/dL (12.0-18.0); BG VENT MODE MASK - NRB
[2019-03-11] MEDS: ENOXAPARIN 30MG/0.3ML SYR SUBCUT SCH (08:29)
[2019-03-11 08:40] LABS: CHLORIDE 107 mEq/L (98-107)
[2019-03-11 08:41] LABS: HEMOGLOBIN. 10.1 g/dL (12.0-16.0); MEAN CORPUSCULAR HEMOGLOBIN 26.9 pg (28.0-32.0); MEAN CORPUSCULAR VOLUME 84.8 fL (81.0-99.0); MEAN PLATELET VOLUME 8.5 fl (7.4-10.4); PLATELET 199 x1000/uL (130-400); RED BLOOD CELL COUNT 3.77 mill/uL (4.2-5.4); RED CELL DISTRIBUTION WIDTH 18.6 % (11.6-14.6)
[2019-03-11 08:48] LABS: CREATINE KINASE 233 IU/L (26-192)
[2019-03-11 08:50] LABS: CREATINE KINASE MB FRACTION 14.3 ng/mL (0.5-3.6)
[2019-03-11 10:09] LABS: PLATELET ESTIMATE NORMAL
[2019-03-11 11:03] LABS: BG BASE EXCESS -5.1 mmol/L (-2.0-2.0); BG CARBOXYHEMOGLOBIN 0.2 % (0.5-1.5); BG DEOXYHEMOGLOBIN 2.5 % (0.0-5.0); BG HCO3 ACT 22.5 mmol/L (22.0-26.0); BG METHEMOGLOBIN 0.3 % (0.0-1.5); BG OXYGEN SATURATION 97.5 % (92.0-98.5); BG PCO2 53.7 mmHg (35.0-45.0); BG PH 7.241 (7.350-7.450); BG PO2 104.7 mmHg (75.0-100.0); BG SAMPLE SITE RIGHT RADIAL; BG VENT MODE NASAL CANNULA
[2019-03-11] MEDS: SODIUM CHLORIDE 0.9% 1,000 ML IV SCH ×2 (11:31→23:43)
[2019-03-11] MEDS ORDERED: IPRATROPIUM/ALBUTEROL 0.5-3(2.5)MG/3ML NEB HHN PRN (12:15)
[2019-03-11] MEDS: METHYLPREDNISOLONE SOD SUCC 40 MG/ML VIAL IV SCH ×2 (12:30→21:20)
[2019-03-11] MEDS: SODIUM CHLORIDE 0.9% INJ 3ML FLUSH IVF SCH ×2 (12:31→21:20)
[2019-03-11] MEDS: HYDRALAZINE 20MG/ML VIAL IV PRN (12:59)
[2019-03-11 13:11] LABS: BG BASE EXCESS -4.8 mmol/L (-2.0-2.0); BG CARBOXYHEMOGLOBIN 0.4 % (0.5-1.5); BG DEOXYHEMOGLOBIN 3.5 % (0.0-5.0); BG HCO3 ACT 22.3 mmol/L (22.0-26.0); BG METHEMOGLOBIN 0.3 % (0.0-1.5); BG OXYGEN SATURATION 96.5 % (92.0-98.5); BG OXYHEMOGLOBIN 95.8 % (94.0-97.0); BG PCO2 50.1 mmHg (35.0-45.0); BG PH 7.266 (7.350-7.450); BG PO2 88.5 mmHg (75.0-100.0); BG SAMPLE SITE RIGHT RADIAL; BG TOTAL HEMOGLOBIN 11.1 g/dL (12.0-18.0); BG VENT MODE MASK - BIPAP; BG VENT RATE 18 set
[2019-03-11 13:16] LABS: *AMPHETAMINES SCREEN URINE NEGATIVE (NEGATIVE); *BARBITURATES SCREEN URINE NEGATIVE (NEGATIVE); *BENZODIAZEPINES SCREEN URINE NEGATIVE (NEGATIVE)
[2019-03-11 13:17] LABS: *COCAINE SCREEN URINE PRESUMTIVE POSITIVE (NEGATIVE); CANNABINOID URINE SCREEN NEGATIVE (NEGATIVE); METHADONE URINE SCREEN NEGATIVE (NEGATIVE); OPIATES URINE SCREEN PRESUMTIVE POSITIVE (NEGATIVE); PHENCYCLIDINE URINE SCREEN NEGATIVE (NEGATIVE)
[2019-03-11 14:59] LABS: BG BASE EXCESS -5.2 mmol/L (-2.0-2.0); BG BILEVEL POS AIRWAY PRESSURE ST=15/5; BG CARBOXYHEMOGLOBIN 0.3 % (0.5-1.5); BG DEOXYHEMOGLOBIN 3.2 % (0.0-5.0); BG FRACTION INSPIRED OXYGEN 30; BG HCO3 ACT 20.8 mmol/L (22.0-26.0); BG METHEMOGLOBIN 0.3 % (0.0-1.5); BG OXYGEN SATURATION 96.8 % (92.0-98.5); BG OXYHEMOGLOBIN 96.2 % (94.0-97.0); BG PCO2 42.4 mmHg (35.0-45.0); BG PH 7.309 (7.350-7.450); BG PO2 91.3 mmHg (75.0-100.0); BG PRESSURE SUPPORT 10; BG SAMPLE SITE LEFT BRACHIAL; BG TOTAL HEMOGLOBIN 11.1 g/dL (12.0-18.0); BG VENT MODE MASK - BIPAP; BG VENT RATE 24 set
[2019-03-11] MEDS: IPRATROPIUM/ALBUTEROL 0.5-3(2.5)MG/3ML NEB HHN SCH ×2 (15:43→20:02)
[2019-03-11 17:53] LABS: CREATINE KINASE 205 IU/L (26-192)
[2019-03-12] VITALS (61 sets, daily range): BP systolic 103–171; BP diastolic 54–116
[2019-03-12 00:06] LABS: CREATINE KINASE 137 IU/L (26-192)
[2019-03-12 00:07] LABS: CREATINE KINASE MB FRACTION 8.1 ng/mL (0.5-3.6)
[2019-03-12] MEDS: LORAZEPAM 2MG/ML CPJ IV PRN (03:28)
[2019-03-12] MEDS: SODIUM CHLORIDE 0.9% INJ 3ML FLUSH IVF SCH ×3 (05:02→21:08)
[2019-03-12] MEDS: METHYLPREDNISOLONE SOD SUCC 40 MG/ML VIAL IV SCH ×3 (05:07→21:08)
[2019-03-12 05:22] LABS: HEMATOCRIT. 33.5 % (36.0-48.0); HEMOGLOBIN. 10.6 g/dL (12.0-16.0); MEAN CORPUSCULAR HEMOGLOBIN 27.2 pg (28.0-32.0); MEAN CORPUSCULAR VOLUME 85.8 fL (81.0-99.0); MEAN PLATELET VOLUME 8.8 fl (7.4-10.4); PLATELET 160 x1000/uL (130-400); RED BLOOD CELL COUNT 3.91 mill/uL (4.2-5.4); RED CELL DISTRIBUTION WIDTH 18.9 % (11.6-14.6)
[2019-03-12 05:31] LABS: CHLORIDE 112 mEq/L (98-107)
[2019-03-12 05:44] LABS: LDL CHOLESTEROL 59 mg/dL (5-100); T4 FREE 1.09 ng/dL (0.76-1.46)
[2019-03-12 05:46] LABS: HDL CHOLESTEROL 72 mg/dL (40-59)
[2019-03-12] MEDS: HYDROMORPHONE HCL/PF 2MG/ML CPJ IV PRN (06:00)
[2019-03-12] MEDS: IPRATROPIUM/ALBUTEROL 0.5-3(2.5)MG/3ML NEB HHN SCH ×4 (08:32→20:36)
[2019-03-12 08:45] LABS: NUCLEATED RED BLOOD CELLS 2 /100 WBC; PLATELET ESTIMATE NORMAL
[2019-03-12 08:48] LABS: BG BASE EXCESS -5.7 mmol/L (-2.0-2.0); BG CARBOXYHEMOGLOBIN 0.3 % (0.5-1.5); BG DEOXYHEMOGLOBIN 2.5 % (0.0-5.0); BG FRACTION INSPIRED OXYGEN 30; BG HCO3 ACT 20.5 mmol/L (22.0-26.0); BG METHEMOGLOBIN 0.1 % (0.0-1.5); BG OXYGEN SATURATION 97.5 % (92.0-98.5); BG OXYHEMOGLOBIN 97.1 % (94.0-97.0); BG PCO2 43.7 mmHg (35.0-45.0); BG PO2 108.1 mmHg (75.0-100.0); BG PRESSURE SUPPORT 10; BG SAMPLE SITE LEFT BRACHIAL; BG TOTAL HEMOGLOBIN 9.8 g/dL (12.0-18.0); BG VENT MODE MASK - BIPAP; BG VENT RATE 28 set
[2019-03-12] MEDS: ENOXAPARIN 30MG/0.3ML SYR SUBCUT SCH (08:56)
[2019-03-12] MEDS ORDERED: SUCCINYLCHOLINE CHLORIDE 200MG/10ML IV ONE (10:45)
[2019-03-12] MEDS ORDERED: ETOMIDATE 2MG/ML 10ML VIAL IV ONE (10:45)
[2019-03-12] MEDS: PROPOFOL 10MG/ML 100ML 100 ML IV PRN ×3 (10:52→21:32)
[2019-03-12 11:40] LABS: BG BASE EXCESS -4.1 mmol/L (-2.0-2.0); BG CARBOXYHEMOGLOBIN 0.3 % (0.5-1.5); BG DEOXYHEMOGLOBIN 1.8 % (0.0-5.0); BG METHEMOGLOBIN 0.2 % (0.0-1.5); BG OXYGEN SATURATION 98.2 % (92.0-98.5); BG OXYHEMOGLOBIN 97.7 % (94.0-97.0); BG PCO2 33.1 mmHg (35.0-45.0); BG PH 7.399 (7.350-7.450); BG PO2 109.3 mmHg (75.0-100.0); BG SAMPLE SITE RIGHT RADIAL; BG TIDAL VOLUME(mL) 450 mL; BG TOTAL HEMOGLOBIN 10.6 g/dL (12.0-18.0); BG VENT MODE VENT - A/C; BG VENT RATE 22 set
[2019-03-12] MEDS ORDERED: LIDOCAINE HCL 1% 20ML VIAL (Pyxis) INJ ONE (11:41)
[2019-03-12] MEDS: LEVOFLOXACIN 250MG PREMIX 50 ML IV SCH (12:36)
[2019-03-12] MEDS: SODIUM CHLORIDE 0.9% 1,000 ML IV SCH (12:36)
[2019-03-12] MEDS: HYDRALAZINE 20MG/ML VIAL IV PRN (21:08)
[2019-03-13] VITALS (37 sets, daily range): BP systolic 119–171; BP diastolic 60–87
[2019-03-13] MEDS: SODIUM CHLORIDE 0.9% 1,000 ML IV SCH (02:10)
[2019-03-13] MEDS: PROPOFOL 10MG/ML 100ML 100 ML IV PRN ×5 (02:17→18:52)
[2019-03-13 05:36] LABS: HEMATOCRIT. 28.4 % (36.0-48.0); HEMOGLOBIN. 9.3 g/dL (12.0-16.0); MEAN CORPUSCULAR HEMOGLOBIN 27.2 pg (28.0-32.0); MEAN CORPUSCULAR VOLUME 83.2 fL (81.0-99.0); MEAN PLATELET VOLUME 8.8 fl (7.4-10.4); PLATELET 170 x1000/uL (130-400); RED BLOOD CELL COUNT 3.41 mill/uL (4.2-5.4); RED CELL DISTRIBUTION WIDTH 19.1 % (11.6-14.6)
[2019-03-13 05:47] LABS: CHLORIDE 117 mEq/L (98-107)
[2019-03-13] MEDS: SODIUM CHLORIDE 0.9% INJ 3ML FLUSH IVF SCH ×3 (06:03→21:47)
[2019-03-13] MEDS: METHYLPREDNISOLONE SOD SUCC 40 MG/ML VIAL IV SCH ×3 (06:03→21:47)
[2019-03-13] MEDS ORDERED: POTASSIUM CHLORIDE 20MEQ/PACKET PO NR (07:30)
[2019-03-13] MEDS: IPRATROPIUM/ALBUTEROL 0.5-3(2.5)MG/3ML NEB HHN SCH ×4 (08:15→21:59)
[2019-03-13 08:29] LABS: BG BASE EXCESS -1.8 mmol/L (-2.0-2.0); BG CARBOXYHEMOGLOBIN 0.3 % (0.5-1.5); BG DEOXYHEMOGLOBIN 1.7 % (0.0-5.0); BG FRACTION INSPIRED OXYGEN 35; BG METHEMOGLOBIN 0.3 % (0.0-1.5); BG OXYGEN SATURATION 98.3 % (92.0-98.5); BG OXYHEMOGLOBIN 97.7 % (94.0-97.0); BG PCO2 28.8 mmHg (35.0-45.0); BG PO2 117.7 mmHg (75.0-100.0); BG SAMPLE SITE RIGHT RADIAL; BG TIDAL VOLUME(mL) 450 mL; BG TOTAL HEMOGLOBIN 9.7 g/dL (12.0-18.0); BG VENT MODE VENT - A/C; BG VENT RATE 22 set
[2019-03-13] MEDS: ENOXAPARIN 30MG/0.3ML SYR SUBCUT SCH (08:45)
[2019-03-13] MEDS: LEVOFLOXACIN 250MG PREMIX 50 ML IV SCH (10:22)
[2019-03-13] MEDS ORDERED: FENTANYL CITRATE/PF 500 MCG in SODIUM CHLORIDE 0.9% 40 ML IV PRN (10:45)
[2019-03-13] MEDS ORDERED: IPRATROPIUM/ALBUTEROL 0.5-3(2.5)MG/3ML NEB HHN PRN (10:45)
[2019-03-13] MEDS: HYDROMORPHONE HCL/PF 2MG/ML CPJ IV PRN (11:41)
[2019-03-13] MEDS: LANSOPRAZOLE 30MG DR CAPSULE NG SCH (13:35)
[2019-03-13 14:40] LABS: PLATELET ESTIMATE NORMAL
[2019-03-14] VITALS (64 sets, daily range): BP systolic 115–171; BP diastolic 21–83
[2019-03-14] MEDS: PROPOFOL 10MG/ML 100ML 100 ML IV PRN ×4 (01:18→20:01)
[2019-03-14] MEDS: IPRATROPIUM/ALBUTEROL 0.5-3(2.5)MG/3ML NEB HHN SCH ×3 (02:03→07:22)
[2019-03-14] MEDS: METHYLPREDNISOLONE SOD SUCC 40 MG/ML VIAL IV SCH ×3 (05:16→21:06)
[2019-03-14] MEDS: SODIUM CHLORIDE 0.9% INJ 3ML FLUSH IVF SCH ×3 (05:17→21:06)
[2019-03-14 05:52] LABS: HEMOGLOBIN. 9.6 g/dL (12.0-16.0); MEAN CORPUSCULAR HEMOGLOBIN 26.9 pg (28.0-32.0); MEAN CORPUSCULAR VOLUME 84.5 fL (81.0-99.0); MEAN PLATELET VOLUME 9.1 fl (7.4-10.4); PLATELET 186 x1000/uL (130-400); RED BLOOD CELL COUNT 3.55 mill/uL (4.2-5.4); RED CELL DISTRIBUTION WIDTH 19.1 % (11.6-14.6)
[2019-03-14 05:53] LABS: CHLORIDE 116 mEq/L (98-107)
[2019-03-14 06:28] LABS: PHOSPHORUS 0.9 mg/dL (2.5-4.9)
[2019-03-14] MEDS: HYDRALAZINE 20MG/ML VIAL IV PRN (06:39)
[2019-03-14 07:55] LABS: BG BASE EXCESS -0.7 mmol/L (-2.0-2.0); BG DEOXYHEMOGLOBIN 2.8 % (0.0-5.0); BG FRACTION INSPIRED OXYGEN 30; BG HCO3 ACT 23.1 mmol/L (22.0-26.0); BG METHEMOGLOBIN 0.3 % (0.0-1.5); BG OXYGEN SATURATION 97.2 % (92.0-98.5); BG OXYHEMOGLOBIN 96.9 % (94.0-97.0); BG PCO2 35.1 mmHg (35.0-45.0); BG PH 7.437 (7.350-7.450); BG PO2 91.6 mmHg (75.0-100.0); BG SAMPLE SITE RIGHT RADIAL; BG TIDAL VOLUME(mL) 450 mL; BG TOTAL HEMOGLOBIN 11.2 g/dL (12.0-18.0); BG VENT MODE VENT - A/C; BG VENT RATE 18 set
[2019-03-14] MEDS: ENOXAPARIN 30MG/0.3ML SYR SUBCUT SCH (08:20)
[2019-03-14] MEDS: LANSOPRAZOLE 30MG DR CAPSULE NG SCH (08:20)
[2019-03-14] MEDS ORDERED: POTASSIUM PHOS,M-BASIC-D-BASIC 20 MMOL in DEXT 5% WATER 243.3333 ML IV NR (09:00)
[2019-03-14] MEDS: LEVOFLOXACIN 250MG PREMIX 50 ML IV SCH (10:10)
[2019-03-14 10:44] LABS: NUCLEATED RED BLOOD CELLS 1 /100 WBC; PLATELET ESTIMATE NORMAL
[2019-03-14] MEDS: IPRATROPIUM BROMIDE (0.02%) 0.5MG/2.5ML NEB HHN SCH ×3 (11:09→20:10)
[2019-03-15] VITALS (48 sets, daily range): BP systolic 96–153; BP diastolic 52–84
[2019-03-15] MEDS: IPRATROPIUM BROMIDE (0.02%) 0.5MG/2.5ML NEB HHN SCH ×8 (00:07→23:53)
[2019-03-15] MEDS: PROPOFOL 10MG/ML 100ML 100 ML IV PRN ×3 (01:55→18:22)
[2019-03-15] MEDS: SODIUM CHLORIDE 0.9% INJ 3ML FLUSH IVF SCH ×3 (05:15→21:27)
[2019-03-15] MEDS: METHYLPREDNISOLONE SOD SUCC 40 MG/ML VIAL IV SCH ×2 (05:15→17:24)
[2019-03-15 05:47] LABS: HEMATOCRIT. 30.6 % (36.0-48.0); MEAN CORPUSCULAR HEMOGLOBIN 27.2 pg (28.0-32.0); MEAN CORPUSCULAR VOLUME 83.3 fL (81.0-99.0); MEAN PLATELET VOLUME 9.1 fl (7.4-10.4); PLATELET 196 x1000/uL (130-400); RED BLOOD CELL COUNT 3.68 mill/uL (4.2-5.4)
[2019-03-15 06:09] LABS: CHLORIDE 110 mEq/L (98-107)
[2019-03-15 06:19] LABS: PHOSPHORUS 2.6 mg/dL (2.5-4.9)
[2019-03-15 08:13] LABS: BG BASE EXCESS 3.2 mmol/L (-2.0-2.0); BG DEOXYHEMOGLOBIN 2.9 % (0.0-5.0); BG FRACTION INSPIRED OXYGEN 30; BG HCO3 ACT 27.1 mmol/L (22.0-26.0); BG METHEMOGLOBIN 0.2 % (0.0-1.5); BG OXYGEN SATURATION 97.1 % (92.0-98.5); BG OXYHEMOGLOBIN 96.9 % (94.0-97.0); BG PCO2 38.9 mmHg (35.0-45.0); BG PH 7.461 (7.350-7.450); BG PO2 93.4 mmHg (75.0-100.0); BG SAMPLE SITE RIGHT RADIAL; BG TIDAL VOLUME(mL) 450 mL; BG TOTAL HEMOGLOBIN 10.5 g/dL (12.0-18.0); BG VENT MODE VENT - A/C; BG VENT RATE 18 set
[2019-03-15] MEDS: LANSOPRAZOLE 30MG DR CAPSULE NG SCH (08:39)
[2019-03-15] MEDS: ENOXAPARIN 30MG/0.3ML SYR SUBCUT SCH (08:40)
[2019-03-15 09:06] LABS: ABSOLUTE EOSINOPHILS 0.1 x10E3/uL (0.0-0.4); ABSOLUTE LYMPHOCYTES 0.6 x10E3/uL (0.7-3.1); BASOPHILS 0 % (Not Estab.); HEMATOCRIT 29.5 % (34.0-46.6); HEMOGLOBIN 8.9 g/dL (11.1-15.9); IMMATURE GRANULOCYTES 0 % (Not Estab.); LYMPHOCYTES 4 % (Not Estab.); MEAN CORPUSCULAR HEMOGLOBIN 26.3 pg (26.6-33.0); MEAN CORPUSCULAR HGB CONC. 30.2 g/dL (31.5-35.7); MEAN CORPUSCULAR VOLUME 87 fL (79-97); MONOCYTES 7 % (Not Estab.); NEUTROPHILS 88 % (Not Estab.); PLATELETS 232 x10E3/uL (150-450); RBC 3.38 x10E6/uL (3.77-5.28); RED CELL DISTRIBUTION WIDTH 18.7 % (12.3-15.4); WBC 14.8 x10E3/uL (3.4-10.8)
[2019-03-15] MEDS: LEVOFLOXACIN 250MG PREMIX 50 ML IV SCH (11:13)
[2019-03-15 11:48] LABS: PLATELET ESTIMATE NORMAL
[2019-03-15 13:15] LABS: % CD 4 POS. LYMPHOCYTES 19.5 % (30.8-58.5); % CD 8 POS. LYMPH 31.3 % (12.0-35.5); ABSOLUTE CD 3 306 /uL (622-2402); ABSOLUTE CD 4 HELPER 117 /uL (359-1519); ABSOLUTE CD 8 SUPPRESSOR 188 /uL (109-897); CD4/CD8 RATIO 0.62 (0.92-3.72)
[2019-03-15] MEDS: MICAFUNGIN 100MG in NORMAL SALINE 100ML IV SCH (13:33)
[2019-03-15] MEDS: LORAZEPAM 2MG/ML CPJ IV PRN (14:36)
[2019-03-16] VITALS (38 sets, daily range): BP systolic 112–168; BP diastolic 57–80
[2019-03-16] MEDS: PROPOFOL 10MG/ML 100ML 100 ML IV PRN (02:53)
[2019-03-16] MEDS: IPRATROPIUM BROMIDE (0.02%) 0.5MG/2.5ML NEB HHN SCH ×5 (03:59→20:14)
[2019-03-16 05:32] LABS: HEMATOCRIT. 31.2 % (36.0-48.0); MEAN CORPUSCULAR VOLUME 84.5 fL (81.0-99.0); MEAN PLATELET VOLUME 8.9 fl (7.4-10.4); PLATELET 214 x1000/uL (130-400); RED BLOOD CELL COUNT 3.69 mill/uL (4.2-5.4); RED CELL DISTRIBUTION WIDTH 18.6 % (11.6-14.6)
[2019-03-16] MEDS: SODIUM CHLORIDE 0.9% INJ 3ML FLUSH IVF SCH ×3 (05:33→22:00)
[2019-03-16 05:38] LABS: CHLORIDE 108 mEq/L (98-107)
[2019-03-16] MEDS ORDERED: ENOXAPARIN 30MG/0.3ML SYR SUBCUT SCH (09:00)
[2019-03-16] MEDS: METHYLPREDNISOLONE SOD SUCC 40 MG/ML VIAL IV SCH ×2 (09:02→17:31)
[2019-03-16] MEDS: LANSOPRAZOLE 30MG DR CAPSULE NG SCH (09:02)
[2019-03-16] MEDS: MICAFUNGIN 100MG in NORMAL SALINE 100ML IV SCH (09:04)
[2019-03-16 09:14] LABS: BG BASE EXCESS 4.3 mmol/L (-2.0-2.0); BG CARBOXYHEMOGLOBIN 0.1 % (0.5-1.5); BG DEOXYHEMOGLOBIN 2.2 % (0.0-5.0); BG FRACTION INSPIRED OXYGEN 30; BG METHEMOGLOBIN 0.3 % (0.0-1.5); BG OXYGEN SATURATION 97.8 % (92.0-98.5); BG OXYHEMOGLOBIN 97.4 % (94.0-97.0); BG PCO2 38.1 mmHg (35.0-45.0); BG PH 7.484 (7.350-7.450); BG PO2 103.1 mmHg (75.0-100.0); BG SAMPLE SITE LEFT BRACHIAL; BG TIDAL VOLUME(mL) 450 mL; BG TOTAL HEMOGLOBIN 10.4 g/dL (12.0-18.0); BG VENT MODE VENT - A/C; BG VENT RATE 18 set
[2019-03-16] MEDS: LEVOFLOXACIN 250MG PREMIX 50 ML IV SCH (11:33)
[2019-03-16] MEDS: LORAZEPAM 2MG/ML CPJ IV PRN ×2 (12:48→20:28)
[2019-03-16 12:53] LABS: BG BASE EXCESS 2.1 mmol/L (-2.0-2.0); BG CARBOXYHEMOGLOBIN 0.2 % (0.5-1.5); BG DEOXYHEMOGLOBIN 4.1 % (0.0-5.0); BG FRACTION INSPIRED OXYGEN 30; BG HCO3 ACT 27.3 mmol/L (22.0-26.0); BG METHEMOGLOBIN 0.2 % (0.0-1.5); BG OXYGEN SATURATION 95.9 % (92.0-98.5); BG OXYHEMOGLOBIN 95.5 % (94.0-97.0); BG PCO2 44.6 mmHg (35.0-45.0); BG PH 7.404 (7.350-7.450); BG PO2 86.9 mmHg (75.0-100.0); BG PRESSURE SUPPORT 8; BG SAMPLE SITE LEFT BRACHIAL; BG TOTAL HEMOGLOBIN 11.5 g/dL (12.0-18.0); BG VENT MODE VENT - CPAP
[2019-03-16 12:54] LABS: PLATELET ESTIMATE NORMAL
[2019-03-16] MEDS: HYDRALAZINE 20MG/ML VIAL IV PRN (16:15)
[2019-03-16] MEDS ORDERED: METOPROLOL TARTRATE 50MG TABLET NG NR (16:48)
[2019-03-16] MEDS: METOPROLOL TARTRATE 50MG TABLET PEG SCH (20:28)
[2019-03-17] VITALS (19 sets, daily range): BP systolic 121–150; BP diastolic 62–81
[2019-03-17] MEDS: IPRATROPIUM BROMIDE (0.02%) 0.5MG/2.5ML NEB HHN SCH ×5 (00:14→20:46)
[2019-03-17] MEDS: SODIUM CHLORIDE 0.9% INJ 3ML FLUSH IVF SCH ×3 (05:52→22:47)
[2019-03-17 07:52] LABS: HEMATOCRIT. 30.6 % (36.0-48.0); HEMOGLOBIN. 9.7 g/dL (12.0-16.0); MEAN CORPUSCULAR HEMOGLOBIN 26.6 pg (28.0-32.0); MEAN CORPUSCULAR VOLUME 83.7 fL (81.0-99.0); MEAN PLATELET VOLUME 8.6 fl (7.4-10.4); PLATELET 239 x1000/uL (130-400); RED BLOOD CELL COUNT 3.66 mill/uL (4.2-5.4); RED CELL DISTRIBUTION WIDTH 18.5 % (11.6-14.6)
[2019-03-17 07:56] LABS: CHLORIDE 109 mEq/L (98-107)
[2019-03-17] MEDS: METHYLPREDNISOLONE SOD SUCC 40 MG/ML VIAL IV SCH (08:15)
[2019-03-17] MEDS: LANSOPRAZOLE 30MG DR CAPSULE NG SCH (08:15)
[2019-03-17] MEDS: METOPROLOL TARTRATE 50MG TABLET PEG SCH ×2 (08:15→21:01)
[2019-03-17] MEDS: ENOXAPARIN 40MG/0.4ML SYR SUBCUT SCH (08:17)
[2019-03-17] MEDS: MICAFUNGIN 100MG in NORMAL SALINE 100ML IV SCH (08:18)
[2019-03-17 09:33] LABS: PLATELET ESTIMATE NORMAL
[2019-03-17] MEDS: LEVOFLOXACIN 250MG PREMIX 50 ML IV SCH (12:15)
[2019-03-17] MEDS: LORAZEPAM 2MG/ML CPJ IV PRN (12:38)
[2019-03-17 15:24] LABS: CLARITY URINE CLEAR (CLEAR); COLOR URINE YELLOW (YELLOW); KETONES URINE NEGATIVE (NEGATIVE); LEUKOCYTE ESTERASE URINE NEGATIVE (NEGATIVE); NITRITE URINE NEGATIVE (NEGATIVE); OCCULT BLOOD URINE 2+ (NEGATIVE); PH URINE 5.5 (4.5-8.0); PROTEIN URINE TRACE (NEGATIVE); SPECIFIC GRAVITY URINE 1.024 (1.005-1.030); UROBILINOGEN URINE 0.2 E.U./dL (0.2-1.0)
[2019-03-17] MEDS: SULFAMETHOXAZOLE/TRIMETHOPRIM 800/160MG TABLET PO SCH (15:45)
[2019-03-17] MEDS: NYSTATIN 100,000 UNITS/ML 5ML UDC SSW SCH (17:39)
[2019-03-18] VITALS (10 sets, daily range): BP systolic 109–178; BP diastolic 54–91
[2019-03-18] MEDS: IPRATROPIUM BROMIDE (0.02%) 0.5MG/2.5ML NEB HHN SCH ×6 (00:28→14:30)
[2019-03-18] MEDS: NYSTATIN 100,000 UNITS/ML 5ML UDC SSW SCH ×4 (01:02→17:54)
[2019-03-18] MEDS: LANSOPRAZOLE 30MG DR CAPSULE NG SCH (06:34)
[2019-03-18] MEDS: SODIUM CHLORIDE 0.9% INJ 3ML FLUSH IVF SCH ×3 (06:34→21:43)
[2019-03-18 08:41] LABS: PHOSPHORUS 1.3 mg/dL (2.5-4.9)
[2019-03-18] MEDS: METHYLPREDNISOLONE SOD SUCC 40 MG/ML VIAL IV SCH (09:02)
[2019-03-18] MEDS: METOPROLOL TARTRATE 50MG TABLET PEG SCH ×2 (09:03→21:38)
[2019-03-18] MEDS: ENOXAPARIN 40MG/0.4ML SYR SUBCUT SCH (09:04)
[2019-03-18] MEDS: SULFAMETHOXAZOLE/TRIMETHOPRIM 800/160MG TABLET PO SCH (15:07)
[2019-03-19] VITALS (14 sets, daily range): BP systolic 113–154; BP diastolic 46–70
[2019-03-19] MEDS: IPRATROPIUM BROMIDE (0.02%) 0.5MG/2.5ML NEB HHN SCH ×4 (04:16→16:00)
[2019-03-19] MEDS: LANSOPRAZOLE 30MG DR CAPSULE NG SCH (08:15)
[2019-03-19] MEDS: ENOXAPARIN 40MG/0.4ML SYR SUBCUT SCH (09:00)
[2019-03-19] MEDS: METOPROLOL TARTRATE 50MG TABLET PEG SCH (09:57)
[2019-03-19] MEDS: METHYLPREDNISOLONE SOD SUCC 40 MG/ML VIAL IV SCH (09:57)
[2019-03-19] MEDS: NYSTATIN 100,000 UNITS/ML 5ML UDC SSW SCH ×2 (12:00→18:00)
[2019-03-19] MEDS: SODIUM CHLORIDE 0.9% INJ 3ML FLUSH IVF SCH (14:06)
[2019-03-19] MEDS: SULFAMETHOXAZOLE/TRIMETHOPRIM 800/160MG TABLET PO SCH (14:06)
== END 2019-03-19 18:40 | DRG 974 ==
LOC: ER 21:01 → 3WST 03-11 01:33 → EDBEDREQSVC 03-11 01:40 → EDBEDREQTM 03-11 01:40 → EDBEDREQ 03-11 01:40 → EDBEDREQDT 03-11 01:40 → ENRESERV 03-11 01:44 → CVICU 03-11 07:51 → 5EST 03-17 15:30
PROVIDERS: ADMIT Internal Medicine; ATTEND Internal Medicine
PROC: 5A09357 Assistance with Respiratory Ventilation, Less than 24 Consecutive Hours, Continuous Positive Airway Pressure (ICD-10-PCS; 2019-03-11)
PROC: B54MZZA Ultrasonography of Right Upper Extremity Veins, Guidance (ICD-10-PCS; principal; 2019-03-12)
PROC: 5A1955Z Respiratory Ventilation, Greater than 96 Consecutive Hours (ICD-10-PCS; 2019-03-12)
PROC: 05HY33Z Insertion of Infusion Device into Upper Vein, Percutaneous Approach (ICD-10-PCS; 2019-03-12)
PROC: 0BH17EZ Insertion of Endotracheal Airway into Trachea, Via Natural or Artificial Opening (ICD-10-PCS; 2019-03-12)
DX: A41.9 Sepsis, unspecified organism (principal); J96.00 Acute respiratory failure, unspecified whether with hypoxia or hypercapnia; B20 Human immunodeficiency virus [HIV] disease; N17.0 Acute kidney failure with tubular necrosis; E87.4 Mixed disorder of acid-base balance; G93.40 Encephalopathy, unspecified; E87.0 Hyperosmolality and hypernatremia; E87.1 Hypo-osmolality and hyponatremia; N39.0 Urinary tract infection, site not specified; J44.1 Chronic obstructive pulmonary disease with (acute) exacerbation; T40.5X1A Poisoning by cocaine, accidental (unintentional), initial encounter; R65.20 Severe sepsis without septic shock; I10 Essential (primary) hypertension; B37.9 Candidiasis, unspecified; D64.9 Anemia, unspecified; E78.5 Hyperlipidemia, unspecified; E83.39 Other disorders of phosphorus metabolism; F17.200 Nicotine dependence, unspecified, uncomplicated; R74.0 Nonspecific elevation of levels of transaminase and lactic acid dehydrogenase [LDH]; I25.10 Atherosclerotic heart disease of native coronary artery without angina pectoris; Z53.20 Procedure and treatment not carried out because of patient's decision for unspecified reasons; Z86.73 Personal history of transient ischemic attack (TIA), and cerebral infarction without residual deficits; Y92.89 Other specified places as the place of occurrence of the external cause; Z79.82 Long term (current) use of aspirin; Z79.899 Other long term (current) drug therapy; J70.4 Drug-induced interstitial lung disorders, unspecified; F11.10 Opioid abuse, uncomplicated
CPT/HCPCS: 36415; 36569; 36600; 71045; 74176; 76700; 76937; 80048; 80061; 80305; 82375; 82550; 82553; 82805; 82962; 83605; 83735; 83880; 84100; 84145; 84439; 84443; 84478; 84484; 86359; 86360; 87070; 87107; 87186; 87804; 92610; 93005; 93306; 94003; 94640; 94660; 96374; 97163; 97166; 99285; C1725; J0330; J0360; J1170; J1650; J1956; J2060; J2248; J2270; J2543; J2704; J2920; J2930; J3370; J3475; J3490; J7030; J7040; J7050; J7060; J7611; J7620; A4315

== ENCOUNTER 2019-04-21 23:08 | Inpatient (IN) | payer MEDICARE, MEDICAID ==
[~2019-04-21] VITALS: Ht 152.4 cm; Wt 44.0 kg
[2019-04-21] MEDS: IPRATROPIUM/ALBUTEROL 0.5-3(2.5)MG/3ML NEB INH SCH (00:03)
[~2019-04-21 23:08] MED LIST changes: -ASPI-1158 PO; -CLOP75TA33 PO; -FAMO20TA8 PO; -METO-539 PO; -PENT400T16 PO; -PNV1TABL76 MT
[2019-04-21] MEDS ORDERED: ACETAMINOPHEN 325MG TABLET PO PRN (23:45)
[2019-04-21] MEDS ORDERED: DOCUSATE SODIUM 100MG CAPSULE PO PRN (23:45)
[2019-04-21] MEDS ORDERED: ONDANSETRON HCL 4MG/2ML INJ IV PRN (23:45)
[2019-04-21] MEDS ORDERED: CLONIDINE 0.1MG TABLET PO PRN (23:45)
[2019-04-21] MEDS ORDERED: METHYLPREDNISOLONE SOD SUCC 125 MG/2 ML VIAL IV NR (23:45)
[2019-04-21] MEDS ORDERED: ACETAMINOPHEN 650MG/20.3ML UDC GT PRN (23:45)
[2019-04-21] MEDS ORDERED: GUAIFENESIN 200MG/10ML SUGAR FREE UDC PO PRN (23:45)
[2019-04-21] MEDS ORDERED: ACETAMINOPHEN 650MG SUPP PR PRN (23:45)
[2019-04-21] MEDS ORDERED: NA PHOS,M-B/NA PHOS,DI-BA ENEMA 118ML PR PRN (23:45)
[2019-04-21] MEDS ORDERED: IPRATROPIUM/ALBUTEROL 0.5-3(2.5)MG/3ML NEB INH PRN (23:45)
[2019-04-21] MEDS ORDERED: MAGNESIUM/ALUMINUM HYDROXIDE/SIMETHICONE 30ML UDC PO PRN (23:45)
[2019-04-21] MEDS ORDERED: DIPHENHYDRAMINE 50MG/ML VIAL IV PRN (23:45)
[2019-04-22] MEDS ORDERED: HYDRALAZINE 20MG/ML VIAL IV PRN
[2019-04-22 00:36] LABS: HEMATOCRIT 36.9 % (36.0-48.0); HEMOGLOBIN 11.5 g/dL (12.0-16.0); MEAN CORPUSCULAR HEMOGLOBIN 26.6 pg (28.0-32.0); MEAN CORPUSCULAR VOLUME 85.5 fL (81.0-99.0); PLATELET 293 x1000/uL (130-400); RED BLOOD CELL COUNT 4.31 mill/uL (4.2-5.4); RED CELL DISTRIBUTION WIDTH 18.8 % (11.6-14.6)
[2019-04-22 00:47] LABS: CHLORIDE 100 mEq/L (98-107)
[2019-04-22 06:15] VITALS: BP 139/56
[2019-04-22] MEDS ORDERED: HYDRALAZINE 10 MG in SODIUM CHLORIDE 0.9% 50 ML IV PRN (06:30)
[2019-04-22 08:00] VITALS: BP 124/52
[2019-04-22] MEDS: ENOXAPARIN 40MG/0.4ML SYR SUBCUT SCH (08:07)
[2019-04-22] MEDS: IPRATROPIUM/ALBUTEROL 0.5-3(2.5)MG/3ML NEB INH SCH ×3 (08:12→20:05)
[2019-04-22] MEDS: METHYLPREDNISOLONE SOD SUCC 125 MG/2 ML VIAL IV SCH ×2 (08:27→11:10)
[2019-04-22 09:00] VITALS: BP 139/56
[2019-04-22] MEDS ORDERED: METO25TA6 MT (09:38)
[2019-04-22] MEDS ORDERED: CLOP75TA4 MT (09:38)
[2019-04-22] MEDS ORDERED: EMTR1TAB8 MT (09:38)
[2019-04-22] MEDS ORDERED: TRAM100C3 PO (09:38)
[2019-04-22] MEDS ORDERED: ALBU4TAB6 MT (09:38)
[2019-04-22] MEDS ORDERED: COMPLERA PO SCH (09:45)
[2019-04-22] MEDS ORDERED: TRAMADOL 50MG TABLET PO PRN (09:45)
[2019-04-22] MEDS ORDERED: MEDICATION NOT ON FORMULARY EA (Metoprolol Tartrate 1 TAB) MT SCH (09:45)
[2019-04-22] MEDS ORDERED: TENOFOV MT SCH (09:45)
[2019-04-22] MEDS ORDERED: EMTRICITAB MT SCH (09:45)
[2019-04-22] MEDS ORDERED: RILPIVIRINE MT SCH (09:45)
[2019-04-22] MEDS ORDERED: MEDICATION NOT ON FORMULARY EA (Clopidogrel Bisulfate (Plavix) 1 TAB) MT SCH (09:45)
[2019-04-22] MEDS: CLOPIDOGREL 75MG TABLET PO SCH (10:00)
[2019-04-22] MEDS: METOPROLOL TARTRATE 25MG TABLET PO SCH ×2 (10:30→21:00)
[2019-04-22 12:00] VITALS: BP 136/49
[2019-04-22 16:00] VITALS: BP 119/60
[2019-04-22 18:05] LABS: CHLORIDE 104 mEq/L (98-107)
[2019-04-22 18:12] LABS: LDL CHOLESTEROL 140 mg/dL (5-100)
[2019-04-22 18:14] LABS: HDL CHOLESTEROL 65 mg/dL (40-59)
[2019-04-22 20:00] VITALS: BP 132/59
[2019-04-22 20:37] LABS: *AMPHETAMINES SCREEN URINE NEGATIVE (NEGATIVE); *BARBITURATES SCREEN URINE NEGATIVE (NEGATIVE); *BENZODIAZEPINES SCREEN URINE NEGATIVE (NEGATIVE)
[2019-04-22 20:38] LABS: *COCAINE SCREEN URINE NEGATIVE (NEGATIVE); CANNABINOID URINE SCREEN NEGATIVE (NEGATIVE); METHADONE URINE SCREEN NEGATIVE (NEGATIVE); OPIATES URINE SCREEN NEGATIVE (NEGATIVE); PHENCYCLIDINE URINE SCREEN NEGATIVE (NEGATIVE)
[2019-04-22] MEDS: FAMOTIDINE 20MG TABLET PO SCH (21:00)
[2019-04-22] MEDS: SODIUM CHLORIDE 0.9% INJ 3ML FLUSH IVF SCH (21:19)
[2019-04-23] VITALS: BP 130/58
[2019-04-23] MEDS: IPRATROPIUM/ALBUTEROL 0.5-3(2.5)MG/3ML NEB INH SCH ×5 (03:00→21:41)
[2019-04-23 04:00] VITALS: BP 121/50
[2019-04-23] MEDS: SODIUM CHLORIDE 0.9% INJ 3ML FLUSH IVF SCH ×3 (06:44→22:04)
[2019-04-23 08:00] VITALS: BP 117/47
[2019-04-23] MEDS: METOPROLOL TARTRATE 25MG TABLET PO SCH ×2 (08:33→21:00)
[2019-04-23] MEDS: ENOXAPARIN 40MG/0.4ML SYR SUBCUT SCH (08:33)
[2019-04-23] MEDS: CLOPIDOGREL 75MG TABLET PO SCH (08:33)
[2019-04-23 12:00] VITALS: BP 120/45
[2019-04-23 16:00] VITALS: BP 139/80
[2019-04-23] MEDS ORDERED: DIPHENOXYLATE/ATROPINE 2.5/0.025MG TABLET PO NR (18:00)
[2019-04-23 20:00] VITALS: BP 119/50
[2019-04-23] MEDS: FAMOTIDINE 20MG TABLET PO SCH (21:00)
[2019-04-24] VITALS: BP 121/49
[2019-04-24] MEDS: IPRATROPIUM/ALBUTEROL 0.5-3(2.5)MG/3ML NEB INH SCH ×5 (01:27→20:40)
[2019-04-24 04:00] VITALS: BP 118/57
[2019-04-24] MEDS: SODIUM CHLORIDE 0.9% INJ 3ML FLUSH IVF SCH ×3 (06:30→21:08)
[2019-04-24 08:00] VITALS: BP 109/46
[2019-04-24] MEDS: METOPROLOL TARTRATE 25MG TABLET PO SCH ×2 (08:44→20:59)
[2019-04-24] MEDS: ENOXAPARIN 40MG/0.4ML SYR SUBCUT SCH (08:45)
[2019-04-24] MEDS: CLOPIDOGREL 75MG TABLET PO SCH (08:45)
[2019-04-24 16:00] VITALS: BP 112/37
[2019-04-24 20:00] VITALS: BP 114/51
[2019-04-24] MEDS: FAMOTIDINE 20MG TABLET PO SCH (21:00)
[2019-04-25] VITALS: BP 132/48
[2019-04-25 04:00] VITALS: BP 108/51
[2019-04-25] MEDS: SODIUM CHLORIDE 0.9% INJ 3ML FLUSH IVF SCH ×2 (06:00→14:00)
[2019-04-25 08:00] VITALS: BP 97/67
[2019-04-25] MEDS: METOPROLOL TARTRATE 25MG TABLET PO SCH (09:00)
[2019-04-25] MEDS: CLOPIDOGREL 75MG TABLET PO SCH (09:00)
[2019-04-25] MEDS: ENOXAPARIN 40MG/0.4ML SYR SUBCUT SCH (09:00)
[2019-04-25] MEDS: IPRATROPIUM/ALBUTEROL 0.5-3(2.5)MG/3ML NEB INH SCH ×2 (09:16→14:43)
[2019-04-25 12:00] VITALS: BP 131/110
[2019-04-25 15:48] VITALS: BP 123/49
[2019-04-25 16:00] VITALS: BP 127/56
[2019-04-25] MEDS ORDERED: METOPROLOL TARTRATE 25MG TABLET PO NR (17:45)
== END 2019-04-25 18:25 | DRG 189 ==
LOC: ER 23:08 → 6EST 23:43 → ENRESERV 04-22 04:48
PROVIDERS: ADMIT Family Medicine; ATTEND Family Medicine
DX: J96.11 Chronic respiratory failure with hypoxia (principal); E78.5 Hyperlipidemia, unspecified; J44.9 Chronic obstructive pulmonary disease, unspecified; Z86.73 Personal history of transient ischemic attack (TIA), and cerebral infarction without residual deficits; Z99.81 Dependence on supplemental oxygen; Z79.899 Other long term (current) drug therapy
CPT/HCPCS: 36415; 71045; 80061; 80305; 85027; 94640; 96374; 99285; J1650; J2930; J7620

== ENCOUNTER 2019-05-01 13:54 | Inpatient (IN) | payer MEDICARE, MEDICAID ==
[~2019-05-01] VITALS: Ht 162.6 cm; Wt 44.5 kg
[~2019-05-01 13:54] MED LIST changes: +ALBU4TAB6 MT; +CLOP75TA4 MT; +EMTR1TAB8 MT; +METO25TA6 MT; +TRAM100C3 PO
[2019-05-01] MEDS ORDERED: ALBUTEROL (0.083%) 2.5MG/3ML NEB HHN STA (14:19)
[2019-05-01] MEDS ORDERED: IPRATROPIUM BROMIDE (0.02%) 0.5MG/2.5ML NEB HHN STA (14:19)
[2019-05-01] MEDS ORDERED: SODIUM CHLORIDE 0.9% 1,000 ML IV ONE (14:19)
[2019-05-01] MEDS ORDERED: METHYLPREDNISOLONE SOD SUCC 125 MG/2 ML VIAL IV STA (14:19)
[2019-05-01] MEDS ORDERED: MAGNESIUM 2 G PREMIX 50 ML IV ONE (14:30)
[2019-05-01] MEDS ORDERED: SODIUM CHLORIDE 0.9% 500 ML IV ONE (14:30)
[2019-05-01] MEDS ORDERED: ASPIRIN 81MG TABLET PO ONE (14:30)
[2019-05-01 15:11] LABS: HEMATOCRIT. 35.9 % (36.0-48.0); HEMOGLOBIN. 11.5 g/dL (12.0-16.0); MEAN CORPUSCULAR HEMOGLOBIN 27.1 pg (28.0-32.0); MEAN CORPUSCULAR VOLUME 84.5 fL (81.0-99.0); PLATELET 287 x1000/uL (130-400); RED BLOOD CELL COUNT 4.25 mill/uL (4.2-5.4); RED CELL DISTRIBUTION WIDTH 19.2 % (11.6-14.6)
[2019-05-01 15:12] LABS: CHLORIDE 96 mEq/L (98-107)
[2019-05-01 15:20] LABS: D-DIMER 0.95 mg/L FEU (<0.50); PROTHROMBIN TIME 10.2 sec (9.6-11.0)
[2019-05-01 15:36] LABS: PARTIAL THROMBOPLASTIN TIME < 20.0 sec (23.4-31.0)
[2019-05-01 15:41] LABS: PLATELET ESTIMATE NORMAL
[2019-05-01 18:31] LABS: CLARITY URINE CLEAR (CLEAR); COLOR URINE YELLOW (YELLOW); KETONES URINE 2+ (NEGATIVE); LEUKOCYTE ESTERASE URINE NEGATIVE (NEGATIVE); NITRITE URINE NEGATIVE (NEGATIVE); OCCULT BLOOD URINE NEGATIVE (NEGATIVE); PROTEIN URINE TRACE (NEGATIVE); SPECIFIC GRAVITY URINE 1.017 (1.005-1.030); UROBILINOGEN URINE 0.2 E.U./dL (0.2-1.0)
[2019-05-01 22:00] VITALS: BP 163/64
[2019-05-01] MEDS ORDERED: CLONIDINE 0.1MG TABLET PO PRN (23:30)
[2019-05-02] MEDS: HYDROCODONE/ACETAMINOPHEN 10/325MG TABLET PO PRN (00:36)
[2019-05-02] MEDS: METHYLPREDNISOLONE SOD SUCC 40 MG/ML VIAL IV SCH ×4 (00:36→22:31)
[2019-05-02 00:51] VITALS: BP 161/60
[2019-05-02] MEDS ORDERED: ACETAMINOPHEN 325MG TABLET PO PRN (01:00)
[2019-05-02] MEDS ORDERED: NA PHOS,M-B/NA PHOS,DI-BA ENEMA 118ML PR PRN (01:00)
[2019-05-02] MEDS ORDERED: ACETAMINOPHEN 500MG TABLET PO PRN (01:00)
[2019-05-02] MEDS ORDERED: MAGNESIUM HYDROXIDE 400MG/5ML 30ML UDC PO PRN (01:00)
[2019-05-02] MEDS ORDERED: BISACODYL 10MG SUPP PR PRN (01:00)
[2019-05-02] MEDS ORDERED: DOCU-138 PO (01:12)
[2019-05-02] MEDS ORDERED: CRAN400C PO (01:12)
[2019-05-02] MEDS ORDERED: CLON-457 PO (01:12)
[2019-05-02] MEDS ORDERED: BISA10EN RC (01:12)
[2019-05-02] MEDS ORDERED: BISA10SU62 RC (01:12)
[2019-05-02] MEDS ORDERED: METO25TA6 PO (01:16)
[2019-05-02] MEDS ORDERED: LOV40 SQ ×2 (01:16)
[2019-05-02] MEDS ORDERED: IPRA3AMP9 HHN (01:16)
[2019-05-02] MEDS ORDERED: MULT1TAB76 PO (01:21)
[2019-05-02] MEDS ORDERED: FAMO-135 PO (01:21)
[2019-05-02] MEDS ORDERED: CLOP75TA4 PO (01:21)
[2019-05-02] MEDS ORDERED: ACET-2708 PO (01:21)
[2019-05-02] MEDS ORDERED: MOM PO (01:21)
[2019-05-02] MEDS ORDERED: ACET-2178 PO (01:21)
[2019-05-02 02:00] VITALS: BP 153/62
[2019-05-02 04:00] VITALS: BP 108/75
[2019-05-02] MEDS: IPRATROPIUM/ALBUTEROL 0.5-3(2.5)MG/3ML NEB HHN SCH ×5 (04:45→19:39)
[2019-05-02] MEDS: DOCUSATE SODIUM 100MG CAPSULE PO SCH ×2 (09:00→17:00)
[2019-05-02] MEDS: ENOXAPARIN 40MG/0.4ML SYR SUBCUT SCH (09:00)
[2019-05-02] MEDS: METOPROLOL TARTRATE 25MG TABLET PO SCH ×2 (09:47→22:22)
[2019-05-02] MEDS: MULTIVITAMINS,THER W-MINERALS TABLET PO SCH (09:47)
[2019-05-02] MEDS: CLOPIDOGREL 75MG TABLET PO SCH (09:47)
[2019-05-02] MEDS: FAMOTIDINE 20MG TABLET PO SCH (09:47)
[2019-05-02] MEDS ORDERED: LIDOCAINE HCL/PF 1% 2ML VIAL ONE (10:05)
[2019-05-02 12:00] VITALS: BP 138/75
[2019-05-02] MEDS ORDERED: IOHEXOL-350 100 ML BOTTLE ONE (15:11)
[2019-05-02 16:00] VITALS: BP 128/79
[2019-05-02 16:35] LABS: BG CARBOXYHEMOGLOBIN 0.3 % (0.5-1.5); BG DEOXYHEMOGLOBIN 9.5 % (0.0-5.0); BG METHEMOGLOBIN 0.4 % (0.0-1.5); BG OXYGEN SATURATION 90.4 % (92.0-98.5); BG OXYHEMOGLOBIN 89.8 % (94.0-97.0); BG PCO2 45.7 mmHg (35.0-45.0); BG PH 7.421 (7.350-7.450); BG SAMPLE SITE RIGHT BRACHIAL; BG TOTAL HEMOGLOBIN 10.8 g/dL (12.0-18.0); BG VENT MODE ROOM AIR
[2019-05-02 20:00] VITALS: BP 140/47
[2019-05-02] MEDS ORDERED: EMTR1TAB8 PO (20:30)
[2019-05-03 04:00] VITALS: BP 167/67
[2019-05-03] MEDS: IPRATROPIUM/ALBUTEROL 0.5-3(2.5)MG/3ML NEB HHN SCH ×5 (04:00→21:16)
[2019-05-03 08:00] VITALS: BP 116/62
[2019-05-03] MEDS: METHYLPREDNISOLONE SOD SUCC 40 MG/ML VIAL IV SCH ×3 (08:48→23:31)
[2019-05-03] MEDS: MULTIVITAMINS,THER W-MINERALS TABLET PO SCH (08:52)
[2019-05-03] MEDS: ENOXAPARIN 40MG/0.4ML SYR SUBCUT SCH ×2 (08:52→09:00)
[2019-05-03] MEDS: FAMOTIDINE 20MG TABLET PO SCH (08:53)
[2019-05-03] MEDS: DOCUSATE SODIUM 100MG CAPSULE PO SCH ×3 (08:53→17:00)
[2019-05-03] MEDS: METOPROLOL TARTRATE 25MG TABLET PO SCH ×2 (08:53→21:03)
[2019-05-03] MEDS: CLOPIDOGREL 75MG TABLET PO SCH (08:53)
[2019-05-03 12:00] VITALS: BP 123/38
[2019-05-03] MEDS ORDERED: LIDOCAINE HCL 1% 20ML VIAL (Pyxis) INJ ONE (13:49)
[2019-05-03] MEDS ORDERED: IOHEXOL-350 100 ML BOTTLE ONE (14:53)
[2019-05-03 16:00] VITALS: BP 132/47
[2019-05-03 18:56] LABS: BASOPHILS % 0.1 % (0.0-2.0); HEMATOCRIT. 30.9 % (36.0-48.0); HEMOGLOBIN. 9.7 g/dL (12.0-16.0); LYMPHOCYTES % 13.2 % (20.0-50.0); MEAN CORPUSCULAR HEMOGLOBIN 26.4 pg (28.0-32.0); MEAN CORPUSCULAR VOLUME 83.9 fL (81.0-99.0); NEUTROPHILS % 81.7 % (40.0-76.0); PLATELET 267 x1000/uL (130-400); RED BLOOD CELL COUNT 3.68 mill/uL (4.2-5.4); RED CELL DISTRIBUTION WIDTH 19.5 % (11.6-14.6)
[2019-05-03 18:57] LABS: CHLORIDE 106 mEq/L (98-107)
[2019-05-03 20:00] VITALS: BP 135/58
[2019-05-04] MEDS: IPRATROPIUM/ALBUTEROL 0.5-3(2.5)MG/3ML NEB HHN SCH ×5 (00:50→21:05)
[2019-05-04 08:00] VITALS: BP 153/65
[2019-05-04] MEDS: FAMOTIDINE 20MG TABLET PO SCH (09:00)
[2019-05-04] MEDS: DOCUSATE SODIUM 100MG CAPSULE PO SCH ×2 (09:00→17:00)
[2019-05-04] MEDS: ENOXAPARIN 40MG/0.4ML SYR SUBCUT SCH (09:00)
[2019-05-04] MEDS: MULTIVITAMINS,THER W-MINERALS TABLET PO SCH (09:54)
[2019-05-04] MEDS: CLOPIDOGREL 75MG TABLET PO SCH (09:54)
[2019-05-04] MEDS: METHYLPREDNISOLONE SOD SUCC 40 MG/ML VIAL IV SCH ×2 (09:55→16:32)
[2019-05-04] MEDS: METOPROLOL TARTRATE 25MG TABLET PO SCH ×2 (09:55→20:58)
[2019-05-04 12:00] VITALS: BP 125/59
[2019-05-04] MEDS: TENOFOVIR DISOPROXIL FUMARATE PO SCH (14:46)
[2019-05-04] MEDS: RILPIVIRINE PO SCH (14:46)
[2019-05-04] MEDS: EMTRICITABINE PO SCH (14:46)
[2019-05-04 16:00] VITALS: BP 147/66
[2019-05-04 20:00] VITALS: BP 152/52
[2019-05-04] MEDS ORDERED: TRAZODONE HCL 50MG TABLET PO PRN (21:00)
[2019-05-05] MEDS: METHYLPREDNISOLONE SOD SUCC 40 MG/ML VIAL IV SCH ×3 (00:18→15:30)
[2019-05-05] MEDS: HYDROCODONE/ACETAMINOPHEN 10/325MG TABLET PO PRN (05:20)
[2019-05-05] MEDS: IPRATROPIUM/ALBUTEROL 0.5-3(2.5)MG/3ML NEB HHN SCH ×4 (07:50→20:25)
[2019-05-05 08:00] VITALS: BP 153/52
[2019-05-05] MEDS: ENOXAPARIN 30MG/0.3ML SYR SUBCUT SCH ×2 (09:00→09:28)
[2019-05-05] MEDS: DOCUSATE SODIUM 100MG CAPSULE PO SCH ×2 (09:00→16:57)
[2019-05-05] MEDS: MULTIVITAMINS,THER W-MINERALS TABLET PO SCH (09:27)
[2019-05-05] MEDS: CLOPIDOGREL 75MG TABLET PO SCH (09:27)
[2019-05-05] MEDS: EMTRICITABINE PO SCH (09:28)
[2019-05-05] MEDS: FAMOTIDINE 20MG TABLET PO SCH (09:28)
[2019-05-05] MEDS: RILPIVIRINE PO SCH (09:28)
[2019-05-05] MEDS: TENOFOVIR DISOPROXIL FUMARATE PO SCH (09:28)
[2019-05-05] MEDS: METOPROLOL TARTRATE 25MG TABLET PO SCH (09:28)
[2019-05-05 12:00] VITALS: BP 127/52
[2019-05-05 16:00] VITALS: BP 127/56
[2019-05-05 17:27] VITALS: BP 127/56
[2019-05-05 20:00] VITALS: BP 140/43
== END 2019-05-05 20:50 | DRG 189 ==
LOC: ER 13:54 → 6WST 16:59 → EDBEDREQ 17:00 → EDBEDREQTM 17:00 → ENRESERV 20:00
PROVIDERS: ADMIT Internal Medicine; ATTEND Internal Medicine
DX: J96.21 Acute and chronic respiratory failure with hypoxia (principal); J44.1 Chronic obstructive pulmonary disease with (acute) exacerbation; R64 Cachexia; Z68.1 Body mass index [BMI] 19.9 or less, adult; I10 Essential (primary) hypertension; R00.0 Tachycardia, unspecified; F14.10 Cocaine abuse, uncomplicated; Z59.0 Homelessness; Z86.73 Personal history of transient ischemic attack (TIA), and cerebral infarction without residual deficits; Z99.81 Dependence on supplemental oxygen; Z79.899 Other long term (current) drug therapy
CPT/HCPCS: 36415; 36573; 36600; 71045; 71250; 71275; 74176; 82375; 82805; 83880; 84484; 85379; 93005; 93970; 94640; 96361; 96365; 96375; 99285; C1725; J1650; J2920; J2930; J3475; J3490; J7030; J7040; J7620; Q9967

== ENCOUNTER 2019-07-01 07:54 | Inpatient (IN) | payer MEDICARE, MEDICAID ==
[~2019-07-01] VITALS: Ht 162.6 cm; Wt 47.2 kg
[~2019-07-01 07:54] MED LIST changes: +ACET-2708 PO; -ALBU4TAB6 MT; +BISA10EN RC; +BISA10SU62 RC; +CLON-457 PO; -CLOP75TA4 MT; +CLOP75TA4 PO; -COMPLERA PO; +CRAN400C PO; +DOCU-138 PO; -EMTR1TAB8 MT; +EMTR1TAB8 PO; +FAMO-135 PO; +IPRA3AMP9 HHN; +LOV40 SQ; -METO25TA6 MT; +METO25TA6 PO; +MOM PO; +MULT1TAB76 PO; +TOPUD PO; -TRAM100C3 PO
[2019-07-01] MEDS ORDERED: ALBUTEROL (0.083%) 2.5MG/3ML NEB HHN STA (08:43)
[2019-07-01] MEDS ORDERED: METHYLPREDNISOLONE SOD SUCC 125 MG/2 ML VIAL IV STA (08:43)
[2019-07-01] MEDS ORDERED: IPRATROPIUM BROMIDE (0.02%) 0.5MG/2.5ML NEB HHN STA (08:43)
[2019-07-01] MEDS ORDERED: ASPIRIN 81MG EC TABLET PO ONE (08:45)
[2019-07-01 09:16] LABS: BASOPHILS % 0.5 % (0.0-2.0); EOSINOPHILS % 0.6 % (0.0-5.0); HEMATOCRIT. 21.1 % (36.0-48.0); LYMPHOCYTES % 14.2 % (20.0-50.0); MEAN CORPUSCULAR HEMOGLOBIN 27.3 pg (28.0-32.0); MEAN CORPUSCULAR VOLUME 87.6 fL (81.0-99.0); MEAN PLATELET VOLUME 8.2 fl (7.4-10.4); MONOCYTES % 7.1 % (2.0-8.0); NEUTROPHILS % 77.6 % (40.0-76.0); PLATELET 130 x1000/uL (130-400); RED BLOOD CELL COUNT 2.41 mill/uL (4.2-5.4); RED CELL DISTRIBUTION WIDTH 20.5 % (11.6-14.6)
[2019-07-01 09:22] LABS: HEMOGLOBIN. 6.6 g/dL (12.0-16.0)
[2019-07-01 11:20] LABS: CHLORIDE 104 mEq/L (98-107)
[2019-07-01] MEDS ORDERED: IPRATROPIUM/ALBUTEROL 0.5-3(2.5)MG/3ML NEB HHN PRN ×2 (12:45→14:30)
[2019-07-01] MEDS ORDERED: GUAIFENESIN 200MG/10ML SUGAR FREE UDC PO PRN (14:30)
[2019-07-01] MEDS ORDERED: DIPHENHYDRAMINE 50MG/ML VIAL IV PRN (14:30)
[2019-07-01] MEDS ORDERED: ACETAMINOPHEN 650MG SUPP PR PRN (14:30)
[2019-07-01] MEDS ORDERED: DOCUSATE SODIUM 100MG CAPSULE PO PRN (14:30)
[2019-07-01] MEDS ORDERED: ONDANSETRON HCL 4MG/2ML INJ IV PRN (14:30)
[2019-07-01] MEDS ORDERED: MAGNESIUM/ALUMINUM HYDROXIDE/SIMETHICONE 30ML UDC PO PRN (14:30)
[2019-07-01] MEDS ORDERED: NA PHOS,M-B/NA PHOS,DI-BA ENEMA 118ML PR PRN (14:30)
[2019-07-01] MEDS ORDERED: CLONIDINE 0.1MG TABLET PO PRN (14:30)
[2019-07-01] MEDS ORDERED: ACETAMINOPHEN 650MG/20.3ML UDC GT PRN (14:30)
[2019-07-01] MEDS: ACETAMINOPHEN 325MG TABLET PO PRN (14:42)
[2019-07-01] MEDS: METHYLPREDNISOLONE SOD SUCC 40 MG/ML VIAL IV SCH ×2 (15:02→21:22)
[2019-07-01 15:38] VITALS: BP 145/55
[2019-07-01 16:00] VITALS: BP 131/59
[2019-07-01] MEDS ORDERED: IPRATROPIUM BROMIDE (0.02%) 0.5MG/2.5ML NEB HHN SCH (18:00)
[2019-07-01 20:36] VITALS: BP 147/58
[2019-07-01] MEDS: TRAZODONE HCL 50MG TABLET PO SCH (21:22)
[2019-07-01] MEDS: IPRATROPIUM/ALBUTEROL 0.5-3(2.5)MG/3ML NEB NEB SCH (21:35)
[2019-07-02] VITALS: BP 138/56
[2019-07-02] MEDS: IPRATROPIUM/ALBUTEROL 0.5-3(2.5)MG/3ML NEB NEB SCH ×5 (02:00→20:51)
[2019-07-02 04:00] VITALS: BP 141/62
[2019-07-02] MEDS: SODIUM CHLORIDE 0.9% INJ 3ML FLUSH IVF SCH ×4 (05:35→21:29)
[2019-07-02] MEDS: METHYLPREDNISOLONE SOD SUCC 40 MG/ML VIAL IV SCH ×3 (05:35→21:28)
[2019-07-02 06:52] LABS: BASOPHILS % 0.4 % (0.0-2.0); HEMATOCRIT. 35.5 % (36.0-48.0); HEMOGLOBIN. 11.5 g/dL (12.0-16.0); LYMPHOCYTES % 16.5 % (20.0-50.0); MEAN CORPUSCULAR HEMOGLOBIN 27.6 pg (28.0-32.0); MEAN CORPUSCULAR VOLUME 85.2 fL (81.0-99.0); MEAN PLATELET VOLUME 9.2 fl (7.4-10.4); MONOCYTES % 3.9 % (2.0-8.0); NEUTROPHILS % 79.2 % (40.0-76.0); PLATELET 250 x1000/uL (130-400); RED BLOOD CELL COUNT 4.17 mill/uL (4.2-5.4); RED CELL DISTRIBUTION WIDTH 18.7 % (11.6-14.6)
[2019-07-02 07:43] LABS: CHLORIDE 109 mEq/L (98-107)
[2019-07-02 08:00] VITALS: BP 128/48
[2019-07-02 08:00] LABS: LDL CHOLESTEROL 108 mg/dL (5-100)
[2019-07-02 08:02] LABS: HDL CHOLESTEROL 86 mg/dL (40-59)
[2019-07-02] MEDS: ACETAMINOPHEN 325MG TABLET PO PRN (10:01)
[2019-07-02 12:00] VITALS: BP 148/62
[2019-07-02] MEDS ORDERED: RILPIVIRINE PO SCH (14:45)
[2019-07-02] MEDS ORDERED: EMTRICITAB PO SCH (14:45)
[2019-07-02] MEDS ORDERED: TENOFOV PO SCH (14:45)
[2019-07-02] MEDS ORDERED: [UNRECOGNIZED DRUG - OTHER] PO SCH (14:45)
[2019-07-02] MEDS ORDERED: IPRATROPIUM/ALBUTEROL 0.5-3(2.5)MG/3ML NEB HHN PRN (15:00)
[2019-07-02] MEDS ORDERED: ACETAMINOPHEN 325MG TABLET PO PRN (15:00)
[2019-07-02] MEDS ORDERED: ACETAMINOPHEN 500MG TABLET PO PRN (15:00)
[2019-07-02 16:00] VITALS: BP 140/56
[2019-07-02] MEDS: MULTIVITAMINS,THER W-MINERALS TABLET PO SCH (17:00)
[2019-07-02] MEDS: THIAMINE HCL 100MG TABLET PO SCH (17:00)
[2019-07-02] MEDS: FOLIC ACID 1MG TABLET PO SCH (17:00)
[2019-07-02] MEDS: CLOPIDOGREL 75MG TABLET PO SCH (17:00)
[2019-07-02 20:30] VITALS: BP 135/62
[2019-07-02] MEDS: TRAZODONE HCL 50MG TABLET PO SCH (21:28)
[2019-07-02] MEDS: METOPROLOL TARTRATE 25MG TABLET PO SCH (21:29)
[2019-07-03 00:41] VITALS: BP 141/53
[2019-07-03] MEDS: IPRATROPIUM/ALBUTEROL 0.5-3(2.5)MG/3ML NEB NEB SCH ×3 (01:18→14:06)
[2019-07-03 01:20] LABS: *AMPHETAMINES SCREEN URINE NEGATIVE (NEGATIVE); *BARBITURATES SCREEN URINE NEGATIVE (NEGATIVE); *BENZODIAZEPINES SCREEN URINE NEGATIVE (NEGATIVE); CANNABINOID URINE SCREEN PRESUMTIVE POSITIVE (NEGATIVE); OPIATES URINE SCREEN NEGATIVE (NEGATIVE); PHENCYCLIDINE URINE SCREEN NEGATIVE (NEGATIVE)
[2019-07-03 01:21] LABS: METHADONE URINE SCREEN NEGATIVE (NEGATIVE)
[2019-07-03 01:22] LABS: *COCAINE SCREEN URINE PRESUMTIVE POSITIVE (NEGATIVE)
[2019-07-03 04:00] VITALS: BP 148/64
[2019-07-03] MEDS: SODIUM CHLORIDE 0.9% INJ 3ML FLUSH IVF SCH (05:36)
[2019-07-03] MEDS: ACETAMINOPHEN 325MG TABLET PO PRN (06:12)
[2019-07-03 08:54] VITALS: BP 137/55
[2019-07-03] MEDS: METHYLPREDNISOLONE SOD SUCC 40 MG/ML VIAL IV SCH (09:12)
[2019-07-03] MEDS: FOLIC ACID 1MG TABLET PO SCH (09:12)
[2019-07-03] MEDS: THIAMINE HCL 100MG TABLET PO SCH (09:12)
[2019-07-03] MEDS: CLOPIDOGREL 75MG TABLET PO SCH (09:12)
[2019-07-03] MEDS: MULTIVITAMINS,THER W-MINERALS TABLET PO SCH (09:12)
[2019-07-03] MEDS: METOPROLOL TARTRATE 25MG TABLET PO SCH (09:13)
[2019-07-03 12:30] VITALS: BP 143/58
[2019-07-03] MEDS ORDERED: P50 MT (12:30)
[2019-07-03] MEDS ORDERED: FLUT1DIS3 INH (12:30)
[2019-07-03 13:50] VITALS: BP 143/58
[2019-07-03 16:14] LABS: CLARITY URINE CLEAR (CLEAR); COLOR URINE YELLOW (YELLOW); KETONES URINE NEGATIVE (NEGATIVE); LEUKOCYTE ESTERASE URINE NEGATIVE (NEGATIVE); NITRITE URINE NEGATIVE (NEGATIVE); OCCULT BLOOD URINE NEGATIVE (NEGATIVE); PH URINE 6.5 (4.5-8.0); PROTEIN URINE 1+ (NEGATIVE); SPECIFIC GRAVITY URINE 1.024 (1.005-1.030); UROBILINOGEN URINE 0.2 E.U./dL (0.2-1.0)
[2019-07-03 18:03] LABS: *AMPHETAMINES SCREEN URINE NEGATIVE (NEGATIVE); *BARBITURATES SCREEN URINE NEGATIVE (NEGATIVE)
[2019-07-03 18:04] LABS: *BENZODIAZEPINES SCREEN URINE NEGATIVE (NEGATIVE); *COCAINE SCREEN URINE PRESUMTIVE POSITIVE (NEGATIVE); CANNABINOID URINE SCREEN NEGATIVE (NEGATIVE); METHADONE URINE SCREEN NEGATIVE (NEGATIVE); OPIATES URINE SCREEN NEGATIVE (NEGATIVE); PHENCYCLIDINE URINE SCREEN NEGATIVE (NEGATIVE)
== END 2019-07-03 15:27 | DRG 917 ==
LOC: ER 08:09 → 6WST 10:06 → ENRESERV 10:53 → 6WST 15:20
PROVIDERS: ADMIT Family Medicine; ATTEND Family Medicine
PROC: 30233N1 Transfusion of Nonautologous Red Blood Cells into Peripheral Vein, Percutaneous Approach (ICD-10-PCS; principal; 2019-07-01)
DX: T40.5X1A Poisoning by cocaine, accidental (unintentional), initial encounter (principal); J96.00 Acute respiratory failure, unspecified whether with hypoxia or hypercapnia; J44.1 Chronic obstructive pulmonary disease with (acute) exacerbation; J68.0 Bronchitis and pneumonitis due to chemicals, gases, fumes and vapors; T40.7X1A Poisoning by cannabis (derivatives), accidental (unintentional), initial encounter; D64.9 Anemia, unspecified; I10 Essential (primary) hypertension; G47.00 Insomnia, unspecified; E78.5 Hyperlipidemia, unspecified; F10.10 Alcohol abuse, uncomplicated; F17.210 Nicotine dependence, cigarettes, uncomplicated; F12.10 Cannabis abuse, uncomplicated; Z86.73 Personal history of transient ischemic attack (TIA), and cerebral infarction without residual deficits; Z79.899 Other long term (current) drug therapy; Y92.89 Other specified places as the place of occurrence of the external cause; Z71.51 Drug abuse counseling and surveillance of drug abuser; Z79.1 Long term (current) use of non-steroidal anti-inflammatories (NSAID)
CPT/HCPCS: 36415; 71045; 80061; 80305; 81003; 82270; 83880; 84484; 86850; 86900; 86920; 93005; 94640; 94644; 96374; 99291; J2920; J2930; J7611; J7620; P9016

== ENCOUNTER 2019-07-21 01:46 | Emergency (ER) | payer MEDICARE, MEDICAID ==
[~2019-07-21] VITALS: Ht 165.1 cm; Wt 45.0 kg
[~2019-07-21 01:46] MED LIST changes: -BISA10EN RC; -BISA10SU62 RC; -CLON-457 PO; -CRAN400C PO; -DOCU-138 PO; -FAMO-135 PO; +FLUT1DIS3 INH; -LOV40 SQ; -MOM PO; +P50 MT
[2019-07-21] MEDS ORDERED: SODIUM CHLORIDE 0.9% 1,000 ML IV ONE (02:05)
[2019-07-21 05:34] LABS: HEMATOCRIT. 42.4 % (36.0-48.0); HEMOGLOBIN. 13.5 g/dL (12.0-16.0); MEAN CORPUSCULAR HEMOGLOBIN 28.7 pg (28.0-32.0); MEAN CORPUSCULAR VOLUME 89.7 fL (81.0-99.0); MEAN PLATELET VOLUME 9.1 fl (7.4-10.4); PLATELET 257 x1000/uL (130-400); RED BLOOD CELL COUNT 4.72 mill/uL (4.2-5.4); RED CELL DISTRIBUTION WIDTH 19.7 % (11.6-14.6)
[2019-07-21 05:46] LABS: CHLORIDE 101 mEq/L (98-107)
[2019-07-21 05:51] LABS: ETHANOL BLOOD 19 mg/dL
[2019-07-21 06:31] LABS: PLATELET ESTIMATE NORMAL
[2019-07-21 08:57] VITALS: BP 155/62
== END 2019-07-21 09:25 | disposition home or self-care (01) ==
LOC: ER 02:10
DX: F10.129 Alcohol abuse with intoxication, unspecified (principal); J44.9 Chronic obstructive pulmonary disease, unspecified; R53.1 Weakness; F12.10 Cannabis abuse, uncomplicated; R00.0 Tachycardia, unspecified; F17.200 Nicotine dependence, unspecified, uncomplicated; R04.0 Epistaxis; Z79.899 Other long term (current) drug therapy; Z98.890 Other specified postprocedural states; Y90.0 Blood alcohol level of less than 20 mg/100 ml
CPT/HCPCS: 36415; 71045; 80053; 80320; 83880; 84484; 85025; 93005; 99284; J7030; G0480

== ENCOUNTER 2019-07-31 02:22 | Inpatient (IN) | payer MEDICARE, MEDICAID ==
[~2019-07-31] VITALS: Ht 152.4 cm; Wt 50.8 kg
[2019-07-31] MEDS ORDERED: ONDANSETRON HCL 4MG/2ML INJ IV STA (02:47)
[2019-07-31] MEDS ORDERED: MORPHINE SULFATE 4 MG/ML CPJ (NOT FOR IM USE) IV STA (02:47)
[2019-07-31] MEDS ORDERED: SODIUM CHLORIDE 0.9% 1000ML BAG (SEPSIS BOLUS) IV ONE (03:00)
[2019-07-31] MEDS ORDERED: VANCOMYCIN 1 G PREMIX 200 ML IV ONE (03:00)
[2019-07-31] MEDS ORDERED: PIPERACILLIN/TAZ 3.375G PREMIX 50 ML IV ONE (03:00)
[2019-07-31 03:24] LABS: CHLORIDE 98 mEq/L (98-107); PROTHROMBIN TIME 10.6 sec (9.6-11.0)
[2019-07-31 03:45] LABS: BASOPHILS % 0.4 % (0.0-2.0); EOSINOPHILS % 0.2 % (0.0-5.0); HEMATOCRIT. 41.2 % (36.0-48.0); HEMOGLOBIN. 13.4 g/dL (12.0-16.0); LYMPHOCYTES % 31.3 % (20.0-50.0); MEAN CORPUSCULAR HEMOGLOBIN 28.4 pg (28.0-32.0); MEAN CORPUSCULAR VOLUME 87.3 fL (81.0-99.0); MEAN PLATELET VOLUME 9.4 fl (7.4-10.4); NEUTROPHILS % 58.1 % (40.0-76.0); PLATELET 342 x1000/uL (130-400); RED BLOOD CELL COUNT 4.71 mill/uL (4.2-5.4); RED CELL DISTRIBUTION WIDTH 19.5 % (11.6-14.6)
[2019-07-31 04:36] LABS: BG BASE EXCESS -3.2 mmol/L (-2.0-2.0); BG CARBOXYHEMOGLOBIN 3.5 % (0.5-1.5); BG DEOXYHEMOGLOBIN 4.4 % (0.0-5.0); BG FRACTION INSPIRED OXYGEN 32; BG HCO3 ACT 22.4 mmol/L (22.0-26.0); BG METHEMOGLOBIN 0.2 % (0.0-1.5); BG OXYGEN SATURATION 95.4 % (92.0-98.5); BG OXYHEMOGLOBIN 91.9 % (94.0-97.0); BG PCO2 42.1 mmHg (35.0-45.0); BG PH 7.343 (7.350-7.450); BG PO2 78.3 mmHg (75.0-100.0); BG SAMPLE SITE RIGHT RADIAL; BG VENT MODE NASAL CANNULA
[2019-07-31] MEDS ORDERED: GUAIFENESIN 200MG/10ML SUGAR FREE UDC PO PRN (07:30)
[2019-07-31] MEDS ORDERED: CLONIDINE 0.1MG TABLET PO PRN (07:30)
[2019-07-31] MEDS ORDERED: ENOXAPARIN 40MG/0.4ML SYR SUBCUT SCH (07:30)
[2019-07-31] MEDS ORDERED: ONDANSETRON HCL 4MG/2ML INJ IV PRN (07:30)
[2019-07-31] MEDS ORDERED: MAGNESIUM/ALUMINUM HYDROXIDE/SIMETHICONE 30ML UDC PO PRN (07:30)
[2019-07-31] MEDS ORDERED: ACETAMINOPHEN 325MG TABLET PO PRN (07:30)
[2019-07-31] MEDS ORDERED: IPRATROPIUM/ALBUTEROL 0.5-3(2.5)MG/3ML NEB HHN PRN (07:30)
[2019-07-31] MEDS ORDERED: DIPHENHYDRAMINE 50MG/ML VIAL IV PRN (07:30)
[2019-07-31 08:06] LABS: PHOSPHORUS 3.6 mg/dL (2.5-4.9)
[2019-07-31] MEDS ORDERED: SODIUM BICARBONATE 4% (2.4MEQ) 5ML VIAL IV ONE (09:28)
[2019-07-31] MEDS ORDERED: LIDOCAINE HCL 1% 20ML VIAL (Pyxis) INJ ONE (09:28)
[2019-07-31 09:34] LABS: CLARITY URINE CLEAR (CLEAR); COLOR URINE YELLOW (YELLOW); KETONES URINE 3+ (NEGATIVE); LEUKOCYTE ESTERASE URINE NEGATIVE (NEGATIVE); NITRITE URINE NEGATIVE (NEGATIVE); OCCULT BLOOD URINE NEGATIVE (NEGATIVE); PROTEIN URINE TRACE (NEGATIVE); UROBILINOGEN URINE 0.2 E.U./dL (0.2-1.0)
[2019-07-31 10:42] LABS: *BARBITURATES SCREEN URINE NEGATIVE (NEGATIVE); *BENZODIAZEPINES SCREEN URINE NEGATIVE (NEGATIVE); *COCAINE SCREEN URINE PRESUMTIVE POSITIVE (NEGATIVE)
[2019-07-31 10:43] LABS: *AMPHETAMINES SCREEN URINE NEGATIVE (NEGATIVE); CANNABINOID URINE SCREEN NEGATIVE (NEGATIVE); METHADONE URINE SCREEN NEGATIVE (NEGATIVE); OPIATES URINE SCREEN PRESUMTIVE POSITIVE (NEGATIVE); PHENCYCLIDINE URINE SCREEN NEGATIVE (NEGATIVE)
[2019-07-31] MEDS ORDERED: THROAT LOZENGES-BENZOCAINE/MENTH/CETYLPYRD CL LOZENGES MM PRN (10:45)
[2019-07-31 10:50] VITALS: BP 107/45
[2019-07-31] MEDS: ENOXAPARIN 30MG/0.3ML SYR SUBCUT SCH (11:30)
[2019-07-31 12:00] VITALS: BP 105/68
[2019-07-31] MEDS: METHYLPREDNISOLONE SOD SUCC 40 MG/ML VIAL IV SCH ×2 (14:00→21:17)
[2019-07-31 16:00] VITALS: BP 122/65
[2019-07-31] MEDS: IPRATROPIUM/ALBUTEROL 0.5-3(2.5)MG/3ML NEB HHN SCH ×2 (17:33→21:06)
[2019-07-31 17:35] VITALS: BP 126/62
[2019-07-31 20:00] VITALS: BP 123/54
[2019-07-31] MEDS ORDERED: IOHEXOL-350 100 ML BOTTLE ONE (20:31)
[2019-08-01] VITALS (8 sets, daily range): BP systolic 96–148; BP diastolic 57–76
[2019-08-01] MEDS: IPRATROPIUM/ALBUTEROL 0.5-3(2.5)MG/3ML NEB HHN SCH ×6 (01:39→22:30)
[2019-08-01] MEDS: METHYLPREDNISOLONE SOD SUCC 40 MG/ML VIAL IV SCH ×3 (06:19→21:28)
[2019-08-01 07:32] LABS: HEMATOCRIT. 33.5 % (36.0-48.0); HEMOGLOBIN. 10.7 g/dL (12.0-16.0); MEAN CORPUSCULAR VOLUME 87.3 fL (81.0-99.0); MEAN PLATELET VOLUME 8.9 fl (7.4-10.4); PLATELET 239 x1000/uL (130-400); RED BLOOD CELL COUNT 3.84 mill/uL (4.2-5.4); RED CELL DISTRIBUTION WIDTH 18.5 % (11.6-14.6)
[2019-08-01 08:00] LABS: CHLORIDE 109 mEq/L (98-107)
[2019-08-01 08:14] LABS: LDL CHOLESTEROL 108 mg/dL (5-100)
[2019-08-01 08:18] LABS: HDL CHOLESTEROL 68 mg/dL (40-59)
[2019-08-01] MEDS: ENOXAPARIN 30MG/0.3ML SYR SUBCUT SCH (09:38)
[2019-08-01 09:54] LABS: PLATELET ESTIMATE NORMAL
[2019-08-02] VITALS (10 sets, daily range): BP systolic 125–163; BP diastolic 46–84
[2019-08-02] MEDS: ACETYLCYSTEINE 100MG/ML 10% VIAL 4ML INH SCH (00:11)
[2019-08-02] MEDS: IPRATROPIUM/ALBUTEROL 0.5-3(2.5)MG/3ML NEB HHN SCH ×5 (04:30→20:00)
[2019-08-02] MEDS: METHYLPREDNISOLONE SOD SUCC 40 MG/ML VIAL IV SCH ×3 (05:46→21:54)
[2019-08-02] MEDS: ENOXAPARIN 30MG/0.3ML SYR SUBCUT SCH (08:49)
[2019-08-02] MEDS: HYDROCODONE/ACETAMINOPHEN 5/325MG TABLET PO PRN ×2 (08:50→19:57)
[2019-08-02] MEDS: DOCUSATE SODIUM 100MG CAPSULE PO PRN (15:10)
[2019-08-03] VITALS (9 sets, daily range): BP systolic 95–176; BP diastolic 45–83
[2019-08-03] MEDS: IPRATROPIUM/ALBUTEROL 0.5-3(2.5)MG/3ML NEB HHN SCH ×4 (04:00→13:12)
[2019-08-03] MEDS: METHYLPREDNISOLONE SOD SUCC 40 MG/ML VIAL IV SCH (06:06)
[2019-08-03 06:22] LABS: CHLORIDE 106 mEq/L (98-107)
[2019-08-03 06:25] LABS: BASOPHILS % 0.2 % (0.0-2.0); HEMATOCRIT. 32.4 % (36.0-48.0); HEMOGLOBIN. 10.3 g/dL (12.0-16.0); MEAN CORPUSCULAR HEMOGLOBIN 28.3 pg (28.0-32.0); MEAN CORPUSCULAR VOLUME 88.7 fL (81.0-99.0); MEAN PLATELET VOLUME 9.1 fl (7.4-10.4); MONOCYTES % 4.9 % (2.0-8.0); NEUTROPHILS % 81.9 % (40.0-76.0); PLATELET 221 x1000/uL (130-400); RED BLOOD CELL COUNT 3.66 mill/uL (4.2-5.4); RED CELL DISTRIBUTION WIDTH 18.8 % (11.6-14.6)
[2019-08-03] MEDS: HYDROCODONE/ACETAMINOPHEN 5/325MG TABLET PO PRN (06:46)
[2019-08-03] MEDS: DOCUSATE SODIUM 100MG CAPSULE PO PRN (08:56)
[2019-08-03] MEDS: ENOXAPARIN 30MG/0.3ML SYR SUBCUT SCH (08:57)
[2019-08-03] MEDS: ACETYLCYSTEINE 100MG/ML 10% VIAL 4ML INH SCH (08:58)
[2019-08-03] MEDS ORDERED: AMLODIPINE 5MG TABLET PO SCH (21:00)
== END 2019-08-03 14:30 | DRG 917 ==
LOC: ER 02:22 → 3WST 04:54 → EDBEDREQTM 05:02 → EDBEDREQ 05:02 → ENRESERV 09:24
PROVIDERS: ADMIT Internal Medicine; ATTEND Internal Medicine
PROC: 05H933Z Insertion of Infusion Device into Right Brachial Vein, Percutaneous Approach (ICD-10-PCS; principal; 2019-07-31)
PROC: B51M1ZA Fluoroscopy of Right Upper Extremity Veins using Low Osmolar Contrast, Guidance (ICD-10-PCS; 2019-07-31)
PROC: B54MZZA Ultrasonography of Right Upper Extremity Veins, Guidance (ICD-10-PCS; 2019-07-31)
DX: T40.5X1A Poisoning by cocaine, accidental (unintentional), initial encounter (principal); J96.00 Acute respiratory failure, unspecified whether with hypoxia or hypercapnia; J68.0 Bronchitis and pneumonitis due to chemicals, gases, fumes and vapors; I50.32 Chronic diastolic (congestive) heart failure; I27.20 Pulmonary hypertension, unspecified; G47.00 Insomnia, unspecified; I07.1 Rheumatic tricuspid insufficiency; Z99.81 Dependence on supplemental oxygen; Z86.73 Personal history of transient ischemic attack (TIA), and cerebral infarction without residual deficits; Z79.899 Other long term (current) drug therapy; Z82.49 Family history of ischemic heart disease and other diseases of the circulatory system; Y92.89 Other specified places as the place of occurrence of the external cause; Z79.51 Long term (current) use of inhaled steroids; Z89.021 Acquired absence of right finger(s)
CPT/HCPCS: 36415; 36573; 36600; 71045; 71275; 74018; 76937; 80048; 80061; 80305; 81003; 82375; 82805; 83605; 83735; 83880; 84100; 84145; 84443; 84484; 87804; 93005; 93970; 94640; 96361; 96365; 96367; 96372; 96375; 97162; 99291; C1725; J1650; J2270; J2405; J2543; J2920; J3370; J3490; J7030; J7040; J7608; J7620; Q9967

== ENCOUNTER 2020-02-10 07:05 | Inpatient (IN) | payer MEDICARE, MEDICAID ==
[~2020-02-10] VITALS: Ht 160 cm; Wt 47.2 kg
[2020-02-10] MEDS ORDERED: METHYLPREDNISOLONE SOD SUCC 125 MG/2 ML VIAL IV STA (07:17)
[2020-02-10] MEDS ORDERED: MAGNESIUM 2 G PREMIX 50 ML IV STA (07:17)
[2020-02-10] MEDS ORDERED: ALBUTEROL 6.7GM HFA INHALER ORI ONE (07:30)
[2020-02-10] MEDS ORDERED: DILTIAZEM HCL 5MG/ML 5ML VIAL IV ONE (08:30)
[2020-02-10 09:53] LABS: BASOPHILS % 0.3 % (0.0-2.0); EOSINOPHILS % 0.2 % (0.0-5.0); HEMATOCRIT. 41.9 % (36.0-48.0); HEMOGLOBIN. 13.2 g/dL (12.0-16.0); LYMPHOCYTES % 27.8 % (20.0-50.0); MEAN CORPUSCULAR HEMOGLOBIN 29.1 pg (28.0-32.0); MEAN CORPUSCULAR VOLUME 92.5 fL (81.0-99.0); MEAN PLATELET VOLUME 8.9 fl (7.4-10.4); MONOCYTES % 9.2 % (2.0-8.0); NEUTROPHILS % 62.5 % (40.0-76.0); PLATELET 338 x1000/uL (130-400); RED BLOOD CELL COUNT 4.53 mill/uL (4.2-5.4); RED CELL DISTRIBUTION WIDTH 17.1 % (11.6-14.6)
[2020-02-10 10:02] LABS: CHLORIDE 102 mEq/L (98-107); D-DIMER 0.31 mg/L FEU (<0.50); INR 0.9; PROTHROMBIN TIME 10.1 sec (9.6-11.0)
[2020-02-10 10:10] LABS: CREATINE KINASE 183 IU/L (26-192)
[2020-02-10] MEDS ORDERED: ENOXAPARIN 40MG/0.4ML SYR SUBCUT SCH (10:15)
[2020-02-10] MEDS ORDERED: CLONIDINE 0.1MG TABLET PO PRN (10:15)
[2020-02-10] MEDS ORDERED: IPRATROPIUM/ALBUTEROL 0.5-3(2.5)MG/3ML NEB NEB PRN (10:15)
[2020-02-10] MEDS ORDERED: ONDANSETRON HCL 4MG/2ML INJ IV PRN (10:15)
[2020-02-10] MEDS ORDERED: GUAIFENESIN 200MG/10ML SUGAR FREE UDC PO PRN (10:15)
[2020-02-10] MEDS ORDERED: MAGNESIUM/ALUMINUM HYDROXIDE/SIMETHICONE 30ML UDC PO PRN (10:15)
[2020-02-10] MEDS ORDERED: HYDROCODONE/ACETAMINOPHEN 5/325MG TABLET PO PRN (10:15)
[2020-02-10] MEDS ORDERED: NA PHOS,M-B/NA PHOS,DI-BA ENEMA 118ML PR PRN (10:15)
[2020-02-10] MEDS ORDERED: DOCUSATE SODIUM 100MG CAPSULE PO PRN (10:15)
[2020-02-10] MEDS ORDERED: FUROSEMIDE 20MG/2ML VIAL IVP ONE ×2 (10:45→20:45)
[2020-02-10] MEDS ORDERED: PIPERACILLIN/TAZ 3.375G PREMIX 50 ML IV SCH ×3 (11:45→20:11)
[2020-02-10] MEDS ORDERED: ENOXAPARIN 30MG/0.3ML SYR SUBCUT SCH (12:00)
[2020-02-10 12:11] LABS: CLARITY URINE CLEAR (CLEAR); COLOR URINE YELLOW (YELLOW); KETONES URINE NEGATIVE (NEGATIVE); LEUKOCYTE ESTERASE URINE NEGATIVE (NEGATIVE); NITRITE URINE NEGATIVE (NEGATIVE); OCCULT BLOOD URINE 1+ (NEGATIVE); PROTEIN URINE 2+ (NEGATIVE); SPECIFIC GRAVITY URINE 1.024 (1.005-1.030); UROBILINOGEN URINE 0.2 E.U./dL (0.2-1.0)
[2020-02-10] MEDS: MORPHINE SULFATE 2 MG/ML CPJ (NOT FOR IM USE) IV PRN ×2 (12:40→17:21)
[2020-02-10] MEDS: LORAZEPAM 2MG/ML CPJ IV PRN (19:45)
[2020-02-10] MEDS ORDERED: DIGOXIN 500MCG/2ML AMP IV NR (20:03)
[2020-02-10] MEDS ORDERED: METHYLPREDNISOLONE SOD SUCC 125 MG/2 ML VIAL IV SCH (20:30)
[2020-02-10] MEDS ORDERED: FUROSEMIDE 20MG/2ML VIAL IVP NR (21:15)
[2020-02-10 21:48] LABS: CHLORIDE 104 mEq/L (98-107)
[2020-02-11] VITALS: BP 141/68
[2020-02-11] MEDS: SODIUM CHLORIDE 0.45% 1,000 ML IV SCH (01:46)
[2020-02-11] MEDS ORDERED: DOCU-138 PO (03:21)
[2020-02-11] MEDS ORDERED: TIOT18CA3 IH (03:21)
[2020-02-11] MEDS ORDERED: TRAZ-252 PO (03:21)
[2020-02-11] MEDS ORDERED: P50 PO (03:21)
[2020-02-11] MEDS ORDERED: TOPUD PO (03:25)
[2020-02-11 04:00] VITALS: BP 132/69
[2020-02-11] MEDS: PIPERACILLIN/TAZOBACTAM 2.25 G in DEXTROSE 5% WATER 50 ML IV SCH ×3 (06:12→23:23)
[2020-02-11 06:13] LABS: HEMATOCRIT. 36.2 % (36.0-48.0); HEMOGLOBIN. 11.8 g/dL (12.0-16.0); MEAN CORPUSCULAR HEMOGLOBIN 29.7 pg (28.0-32.0); MEAN PLATELET VOLUME 8.3 fl (7.4-10.4); PLATELET 329 x1000/uL (130-400); RED BLOOD CELL COUNT 3.98 mill/uL (4.2-5.4); RED CELL DISTRIBUTION WIDTH 16.5 % (11.6-14.6)
[2020-02-11] MEDS: METHYLPREDNISOLONE SOD SUCC 125 MG/2 ML VIAL IV SCH ×2 (06:13→12:22)
[2020-02-11 06:28] LABS: CHLORIDE 101 mEq/L (98-107)
[2020-02-11 06:38] LABS: LDL CHOLESTEROL 136 mg/dL (5-100)
[2020-02-11 06:39] LABS: HDL CHOLESTEROL 133 mg/dL (40-59)
[2020-02-11 06:40] LABS: T4 FREE 0.99 ng/dL (0.76-1.46)
[2020-02-11 08:00] VITALS: BP 144/81
[2020-02-11] MEDS: ASPIRIN 81MG EC TABLET PO SCH (09:58)
[2020-02-11 11:06] LABS: PLATELET ESTIMATE NORMAL
[2020-02-11 12:00] VITALS: BP 144/70
[2020-02-11] MEDS: METOPROLOL TARTRATE 25MG TABLET PO SCH ×2 (12:23→21:09)
[2020-02-11] MEDS: CLOPIDOGREL 75MG TABLET PO SCH (12:23)
[2020-02-11 16:00] VITALS: BP 146/62
[2020-02-11 20:00] VITALS: BP 138/62
[2020-02-11] MEDS: METHYLPREDNISOLONE SOD SUCC 40 MG/ML VIAL IV SCH (21:09)
[2020-02-11] MEDS: LORAZEPAM 2MG/ML CPJ IV PRN (21:09)
[2020-02-11] MEDS: MORPHINE SULFATE 2 MG/ML CPJ (NOT FOR IM USE) IV PRN (21:53)
[2020-02-11] MEDS: DIPHENHYDRAMINE 50MG/ML VIAL IV PRN (22:16)
[2020-02-12] VITALS: BP 120/55
[2020-02-12 04:00] VITALS: BP 150/70
[2020-02-12] MEDS: METHYLPREDNISOLONE SOD SUCC 40 MG/ML VIAL IV SCH ×3 (05:39→21:10)
[2020-02-12] MEDS: PIPERACILLIN/TAZOBACTAM 2.25 G in DEXTROSE 5% WATER 50 ML IV SCH ×4 (05:39→23:13)
[2020-02-12 07:34] LABS: BASOPHILS % 0.2 % (0.0-2.0); HEMATOCRIT. 38.8 % (36.0-48.0); HEMOGLOBIN. 12.1 g/dL (12.0-16.0); LYMPHOCYTES % 12.7 % (20.0-50.0); MEAN CORPUSCULAR HEMOGLOBIN 29.2 pg (28.0-32.0); MEAN CORPUSCULAR VOLUME 93.6 fL (81.0-99.0); MONOCYTES % 7.5 % (2.0-8.0); NEUTROPHILS % 79.6 % (40.0-76.0); PLATELET 281 x1000/uL (130-400); RED BLOOD CELL COUNT 4.14 mill/uL (4.2-5.4); RED CELL DISTRIBUTION WIDTH 16.9 % (11.6-14.6)
[2020-02-12 08:00] VITALS: BP 118/57
[2020-02-12 08:41] LABS: CHLORIDE 102 mEq/L (98-107)
[2020-02-12] MEDS: ASPIRIN 81MG EC TABLET PO SCH (08:42)
[2020-02-12] MEDS: METOPROLOL TARTRATE 25MG TABLET PO SCH ×2 (08:42→21:10)
[2020-02-12] MEDS: CLOPIDOGREL 75MG TABLET PO SCH (08:42)
[2020-02-12 12:00] VITALS: BP 143/63
[2020-02-12 16:00] VITALS: BP 139/66
[2020-02-12 17:35] LABS: *AMPHETAMINES SCREEN URINE NEGATIVE (NEGATIVE); *BARBITURATES SCREEN URINE NEGATIVE (NEGATIVE); *BENZODIAZEPINES SCREEN URINE NEGATIVE (NEGATIVE); *COCAINE SCREEN URINE PRESUMTIVE POSITIVE (NEGATIVE); CANNABINOID URINE SCREEN NEGATIVE (NEGATIVE)
[2020-02-12 17:37] LABS: METHADONE URINE SCREEN NEGATIVE (NEGATIVE); OPIATES URINE SCREEN PRESUMTIVE POSITIVE (NEGATIVE); PHENCYCLIDINE URINE SCREEN NEGATIVE (NEGATIVE)
[2020-02-12] MEDS: LORAZEPAM 2MG/ML CPJ IV PRN (17:40)
[2020-02-12] MEDS: MORPHINE SULFATE 2 MG/ML CPJ (NOT FOR IM USE) IV PRN (20:54)
[2020-02-12 20:57] VITALS: BP 148/61
[2020-02-12] MEDS: SODIUM CHLORIDE 0.45% 1,000 ML IV SCH (21:11)
[2020-02-12] MEDS: DIPHENHYDRAMINE 50MG/ML VIAL IV PRN (21:11)
[2020-02-13 01:01] VITALS: BP 148/54
[2020-02-13 04:59] VITALS: BP 151/53
[2020-02-13] MEDS: PIPERACILLIN/TAZOBACTAM 2.25 G in DEXTROSE 5% WATER 50 ML IV SCH ×3 (05:07→17:44)
[2020-02-13] MEDS: METHYLPREDNISOLONE SOD SUCC 40 MG/ML VIAL IV SCH ×2 (05:10→17:42)
[2020-02-13 08:00] VITALS: BP 153/67
[2020-02-13] MEDS: METOPROLOL TARTRATE 25MG TABLET PO SCH ×3 (09:00→20:32)
[2020-02-13] MEDS: ASPIRIN 81MG EC TABLET PO SCH ×2 (09:00→09:11)
[2020-02-13] MEDS: CLOPIDOGREL 75MG TABLET PO SCH ×2 (09:00→09:10)
[2020-02-13] MEDS: LORAZEPAM 2MG/ML CPJ IV PRN ×3 (09:46→20:33)
[2020-02-13 12:00] VITALS: BP 175/67
[2020-02-13 16:00] VITALS: BP 178/69
[2020-02-13 20:00] VITALS: BP 137/68
[2020-02-13] MEDS: SODIUM CHLORIDE 0.45% 1,000 ML IV SCH ×2 (20:00)
[2020-02-13] MEDS: DIPHENHYDRAMINE 50MG/ML VIAL IV PRN (21:53)
[2020-02-13] MEDS: MORPHINE SULFATE 2 MG/ML CPJ (NOT FOR IM USE) IV PRN (23:51)
[2020-02-14] VITALS: BP 144/57
[2020-02-14] MEDS: DIPHENHYDRAMINE 50MG/ML VIAL IV PRN (03:14)
[2020-02-14 04:00] VITALS: BP 138/67
[2020-02-14] MEDS: PIPERACILLIN/TAZOBACTAM 2.25 G in DEXTROSE 5% WATER 50 ML IV SCH ×4 (05:35→12:00)
[2020-02-14] MEDS ORDERED: ASPIRIN 81MG TABLET PO SCH (09:00)
[2020-02-14] MEDS: METHYLPREDNISOLONE SOD SUCC 40 MG/ML VIAL IV SCH (09:00)
[2020-02-14] MEDS: CLOPIDOGREL 75MG TABLET PO SCH (09:46)
[2020-02-14] MEDS: METOPROLOL TARTRATE 25MG TABLET PO SCH (09:48)
[2020-02-14] MEDS ORDERED: PREDNISONE 20MG TABLET PO SCH (14:00)
[2020-02-14 14:07] VITALS: BP 125/56
== END 2020-02-14 17:05 | disposition left against medical advice (07) | DRG 917 ==
LOC: ER 07:25 → EDBEDREQ 10:09 → ENRESERV 22:18 → EDBEDREQ 23:11 → 5WST 02-11 00:01
PROVIDERS: ADMIT Internal Medicine; ATTEND Internal Medicine
DX: T40.5X1A Poisoning by cocaine, accidental (unintentional), initial encounter (principal); J96.01 Acute respiratory failure with hypoxia; I50.33 Acute on chronic diastolic (congestive) heart failure; J18.9 Pneumonia, unspecified organism; J44.1 Chronic obstructive pulmonary disease with (acute) exacerbation; E46 Unspecified protein-calorie malnutrition; J44.0 Chronic obstructive pulmonary disease with (acute) lower respiratory infection; J68.0 Bronchitis and pneumonitis due to chemicals, gases, fumes and vapors; Z68.1 Body mass index [BMI] 19.9 or less, adult; R65.10 Systemic inflammatory response syndrome (SIRS) of non-infectious origin without acute organ dysfunction; I11.0 Hypertensive heart disease with heart failure; B34.9 Viral infection, unspecified; I27.20 Pulmonary hypertension, unspecified; E11.9 Type 2 diabetes mellitus without complications; F14.10 Cocaine abuse, uncomplicated; D72.821 Monocytosis (symptomatic); F10.10 Alcohol abuse, uncomplicated; Y90.9 Presence of alcohol in blood, level not specified; Z53.29 Procedure and treatment not carried out because of patient's decision for other reasons; Z20.828 Contact with and (suspected) exposure to other viral communicable diseases; Z99.81 Dependence on supplemental oxygen; Z86.73 Personal history of transient ischemic attack (TIA), and cerebral infarction without residual deficits; Z79.899 Other long term (current) drug therapy; Z79.1 Long term (current) use of non-steroidal anti-inflammatories (NSAID); Z87.891 Personal history of nicotine dependence; Y92.89 Other specified places as the place of occurrence of the external cause
CPT/HCPCS: 36415; 71045; 80048; 80053; 80061; 80305; 81003; 82550; 82728; 83605; 83615; 83880; 84145; 84439; 84443; 84484; 85025; 85379; 85384; 86140; 87804; 93005; 93306; 94640; 96365; 97162; 99291; J1160; J1200; J1650; J1940; J2060; J2270; J2405; J2543; J2920; J2930; J3475; J3490; J7060; U0003